=== PATIENT | male | born 1935 | race Caucasian/White ===

== ENCOUNTER 2020-11-07 15:09 | Outpatient (CLI) | payer MEDICARE, OTHER, SELFPAY ==
--- NOTE | ~2020-11-07 | XR_ITS ---
EXAMINATION: XR hip LT min 2V DATE: 11/07/2020 15:31 INDICATION: Left hip pain. TECHNIQUE: 3 views of left hip were obtained. COMPARISON: None. FINDINGS: Bone alignment is normal. No fracture. There is mild left hip osteoarthritis. There is mode rate lumbar spondylosis. IMPRESSION: 1. Mild left hip osteoarthritis. Reviewed, dictated and finalized at location B.
== END 2020-11-07 15:10 | disposition home or self-care (01) ==
LOC: ANHIMG 15:15
PROVIDERS: PCP Family Medicine; Visit Provider Family Medicine
DX: M16.12 Unilateral primary osteoarthritis, left hip (principal)
CPT/HCPCS: 73502

== ENCOUNTER 2021-04-10 09:36 | Outpatient (CLI) | payer MEDICARE, OTHER, SELFPAY ==
--- NOTE | ~2021-04-10 | CT_ITS ---
EXAMINATION: CT abdomen pelvis w con DATE: 04/10/2021 10:16 INDICATION: Prostate cancer. TECHNIQUE: Computed tomography (CT) of the abdomen and pelvis was performed with 100 mL Omnipaque 350 intravenous contrast. Automated exposure control and iterative reconstruction technique were employe d. The dose-length product was 531.75 mGy-cm. COMPARISON: CT abdomen and pelvis 02/25/2016, 12/13/12, 01/14/12 FINDINGS: The visualized portions of the lung bases demonstrate mild atelectasis and mild chronic mando g disease. No pleural effusion. The heart size is normal. There are coronary artery calcifications. T here are calcifications of the aortic valve. No pericardial effusion. There is a 6.9 cm cyst in the l iver. There are changes of cholecystectomy. There are diverticula in the second portion of the duoden um. The spleen, pancreas, and left adrenal gland are normal. 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 There is cortical thinning of right kidney. There is a 10 mm cyst in left kidney. There is a 4.5 cm fusiform aneurysm of infrarenal aorta. The prostate is mild ly enlarged. The bladder is decompressed. There is diverticulosis of the colon without evidence of di verticulitis. The appendix is normal. There are chronic areas of wall thickening in the ileum includi ng a long segment of the terminal ileum. There are no pathologically enlarged lymph nodes. There is n o free intraperitoneal fluid. There is a chronic 15 mm sclerotic lesion in right femoral head inferio rly, likely benign. There is lumbar dextroscoliosis and severe spondylosis. IMPRESSION: 1. No evidence of metastatic disease. 2. Chronic ileitis, consistent with Crohn disease. 3. 4.5 cm fusiform infrarenal aortic aneurysm, increased from 3.7 cm on 02/25/2016. Reviewed, dictated and finalized at location A. IMPRESSION: 1. No evidence of metastatic disease. 2. Chronic ileitis, consistent with Crohn disease. 3. 4.5 cm fusiform infrarenal aortic aneurysm, increased from 3.7 cm on 02/25/20 16.
--- NOTE | ~2021-04-10 | NM_ITS ---
EXAMINATION: NM bone scan whole body DATE: 04/10/2021 15:42 INDICATION: Prostate cancer. TECHNIQUE: 23.8 mCi Tc-99m HDP was administered intravenously. Delayed whole-body scintigrams were o btained. COMPARISON: CT abdomen and pelvis 04/10/2021, bone scan 06/04/2017 FINDINGS: There is joint-centered increased activity in the first carpometacarpal joints and shoulder s without radiographic comparison, likely osteoarthritis. IMPRESSION: 1. No evidence of metastatic disease. Reviewed, dictated and finalized at location A.
[2021-04-10 10:10] LABS: Estimated Glomerular Filt Rate > 60
== END 2021-04-10 09:37 | disposition home or self-care (01) ==
LOC: ANHIMG 09:40
PROVIDERS: PCP Family Medicine; Visit Provider Urology
DX: C61 Malignant neoplasm of prostate (principal); I70.1 Atherosclerosis of renal artery
CPT/HCPCS: 74177; 78306; A9561; Q9967

== ENCOUNTER → 2021-06-10 10:29 | Outpatient (CLI) | payer MEDICARE, OTHER, SELFPAY ==
[2021-06-11 03:58] LABS: SARS-CoV-2 RNA PCR Positive
== END ==
PROVIDERS: PCP Family Medicine; Visit Provider Physician Assistant Medical
DX: U07.1 COVID-19 (principal)
CPT/HCPCS: C9803; U0003; U0005

== ENCOUNTER 2021-06-12 07:27 | Outpatient (RCR) | payer MEDICARE, OTHER, SELFPAY ==
[2021-06-12] MEDS: ACETAMINOPHEN 325 MG TABLET 650 MG PO (07:40)
[2021-06-12] MEDS: diphenhydrAMINE HCl CAP 25 MG CAPSULE PO (07:40)
[2021-06-12] MEDS: FAMOTIDINE 20 MG TABLET PO (07:40)
[2021-06-12 07:49] VITALS: BP 121/60; PULSE 65; TEMP 35.9; O2SAT 96
[2021-06-12 09:12] VITALS: BP 116/72
== END 2021-06-12 16:59 ==
LOC: AMCINF 07:27
PROVIDERS: PCP Family Medicine; Visit Provider Internal Medicine Hematology & Oncology
DX: U07.1 COVID-19 (principal); I10 Essential (primary) hypertension
CPT/HCPCS: A9270; M0245; Q0245

== ENCOUNTER 2021-08-26 08:34 | Outpatient (CLI) | payer MEDICARE, OTHER, SELFPAY ==
--- NOTE | ~2021-08-26 | XR_ITS ---
EXAMINATION: XR small bowel follow through DATE: 08/26/2021 13:16 INDICATION: Diarrhea, unspecified. TECHNIQUE: Oral contrast was administered, and a time course of radiographs of the abdomen was obtain ed. Fluoroscopy of the small bowel was performed. Fluoroscopy exposure time was 0.5 minutes. The tota l number of images was 19. COMPARISON: CT abdomen and pelvis 04/02/2021, 02/25/2016 FINDINGS: There is chronic fold thickening with multiple strictures involving the distal 40 cm of small bowel. There are no dilated loops of bowel. There are multiple diverticula in the proximal small bowel. Siddiqui sit time from the stomach to proximal colon was approximately 4 hours. Surgical clips in the right up per quadrant are likely from cholecystectomy. IMPRESSION: 1. Chronic terminal ileitis, consistent with Crohn disease. 2. Diverticulosis of the proximal small bowel. Reviewed, dictated and finalized at location A.
== END 2021-08-26 08:35 | disposition home or self-care (01) ==
LOC: ANHIMG 08:36
PROVIDERS: PCP Family Medicine; Visit Provider Nurse Practitioner Family
DX: R19.7 Diarrhea, unspecified (principal); K50.00 Crohn's disease of small intestine without complications; K57.10 Diverticulosis of small intestine without perforation or abscess without bleeding
CPT/HCPCS: 74250

== ENCOUNTER 2021-10-15 01:54 | Day surgery (SDC) | payer MEDICARE, OTHER, SELFPAY ==
[2021-10-01 14:34] VITALS: BMI 24.5
[2021-10-15 11:12] VITALS: BP 151/102; PULSE 99; RESP 18; TEMP 36.2; O2SAT 100
[2021-10-15] MEDS: LACTATED RINGERS 1,000 ML 150 ML IV CONT (11:16)
--- NOTE | 2021-10-15 11:21 | P.PNAN_ITS ---
Anes - Initial Pre Proc Eval Procedure: Operation Date: 10/15/21 12:30 Proposed Procedures p Colonoscopy - Sudheer Truong MD Date/Time: 10/15/21 11:21 Surgeon: Sudheer Truong MD Pre Op Diagnosis: chronic ileitis abnormal CAT scan Patient Data Age: 86 Gender: M Height: 1.73 m Weight: 68.7 kg Last Vital Signs Temp 36.2 C L 10/15/21 11:12 Pulse 99 10/15/21 11:12 Resp 18 10/15/21 11:12 BP 151/102 H 10/15/21 11:12 Pulse Ox 100 10/15/21 11:12 Allergies Allergy/AdvReac Type Severity Reaction Status Date / Time No Known Allergies Allergy Verified 10/15/21 11:08 Home Medications Medication Instructions Recorded Confirmed Type aspirin 81 mg tablet,delayed 81 mg PO DAILY 05/02/19 10/01/21 History release diltiazem HCl [Cartia XT] 240 mg PO DAILY 10/01/21 10/15/21 History fluorouracil See Rx Instructions .ROUTE 10/01/21 10/01/21 History .COMPLEX PRN metoprolol tartrate 25 mg PO BID 10/01/21 10/01/21 History Patient hx anesthesia problems: none Family hx anesthesia problems: none Results Review: All pre-operative results and documents have been reviewed as part of the pre-operative evaluation. [facility] Past Medical History Medical History (Updated 10/15/21 @ 11:27 by Kwame Wu DO) AAA (abdominal aortic aneurysm) without rupture Followed Dr Stephens Vascular surgeon 12-02 aorta 4.3 cm repeat next year Actinic keratosis Benign essential HTN CAD (coronary artery disease) History of basal cell carcinoma (BCC) History of SCC (squamous cell carcinoma) of skin Obstructive sleep apnea on CPAP Family History Family History Father Diabetes mellitus Social History Social History (Updated 06/03/21 @ 14:53 by Usah Jones CMA) Smoking status: Former smoker Tobacco type: cigarettes Second hand tobacco smoke exposure: No Alcohol intake: current Drinks per week: 10 Alcohol use details: Beer Substance use: never Substance use type: does not use Living arrangements: with family Gender identity (if verbalized by the patient): Male Spiritual care concerns: No Agree to blood products: Yes Anes - Eval Final PreProcedure Day of Procedure 10/15/21 11:21 Patient weight: normal Heart: regular rate and rhythm Lungs: clear to auscultation and normal air movement Airway: Mallampati scale class II Neurological: alert and oriented Last oral intake: >/= 8 hours ASA classification: III Emergent: no Anesthetic plan: proceed Anesthesia type and monitoring: general GIVS and standard monitoring Results Review: All pre-operative results and documents have been reviewed as part of the pre-operative evaluation. Informed Consent: The patient's anesthetic plan and its attendant risks and benefits were discussed with the patient/family/POA. Questions were solicited and answers provided to the satisfaction of the patient/family/POA.
--- NOTE | 2021-10-15 12:01 | PM.HPGS ---
History of Present Illness History of Present Illness Consent: Risks, benefits, and alternatives have been discussed and questions answered. Patient agrees to proceed with procedure. Chief complaint: chronic ileitis abnormal CAT scan Narrative: Randy Gee is a 86 year old male with intermittent diarrhea. Ct scan back in March 2021, showed chronic areas of wall thickening in the ileum including a long segment of the terminal ileum. He denies any hx of crohns disease(recs reviewed). He was hospitalized back in 2012, for SBO that was treated medically. Per records, there was possible narrowing fo the distal/terminal ileum possibly due to incomplete distention however stricturing is not excluded (recs reviewed). Last colonoscopy 10-20 years ago. Serology for celiac negative, normal esr and crp but elevated calprotectin in stool. Review of Systems Constitutional: Constitutional: Denies headache(s) and Denies weakness Eyes: Eyes: Denies blurry vision ENT: Reports Normal hearing present, Denies headache(s) and Denies neck pain Cardiovascular: Cardiovascular: Denies chest pain and Denies dyspnea Respiratory: Respiratory: Denies dyspnea Gastrointestinal: Gastrointestinal: Reports no additional gastrointestinal complaints Genitourinary: Genitourinary: Denies dysuria Musculoskeletal: Musculoskeletal: Denies neck pain Integumentary/Breasts: Skin/Breast: Denies dry skin Neurologic: Reports Normal hearing present, Denies headache(s) and Denies weakness Psychiatric: Psychiatric: Denies anxiety Endocrine: Endocrine: Denies change in body appearance Hematologic/Lymphatic: Hematologic/Lymphatic: Denies easy bleeding Allergic/Immunologic: Allergic/Immunologic: Denies urticaria PMF Past Medical History Medical History (Updated 10/15/21 @ 12:22 by Sudheer Truong MD) AAA (abdominal aortic aneurysm) without rupture Followed Dr Stephens Vascular surgeon 12-02 aorta 4.3 cm repeat next year Actinic keratosis Benign essential HTN CAD (coronary artery disease) Chronic diarrhea History of basal cell carcinoma (BCC) History of SCC (squamous cell carcinoma) of skin Ileitis Obstructive sleep apnea on CPAP Family History Family History Father Diabetes mellitus Social History Social History (Updated 06/03/21 @ 14:53 by Usha Jones CMA) Smoking status: Former smoker Tobacco type: cigarettes Second hand tobacco smoke exposure: No Alcohol intake: current Drinks per week: 10 Alcohol use details: Beer Substance use: never Substance use type: does not use Living arrangements: with family Gender identity (if verbalized by the patient): Male Spiritual care concerns: No Agree to blood products: Yes Meds Home Medications and Allergies Home Medications Medication Instructions Recorded Confirmed Type aspirin 81 mg tablet,delayed 81 mg PO DAILY 05/02/19 10/01/21 History release diltiazem HCl [Cartia XT] 240 mg PO DAILY 10/01/21 10/15/21 History fluorouracil See Rx Instructions .ROUTE 10/01/21 10/01/21 History .COMPLEX PRN metoprolol tartrate 25 mg PO BID 10/01/21 10/01/21 History Allergies Allergy/AdvReac Type Severity Reaction Status Date / Time No Known Allergies Allergy Verified 10/15/21 11:08 Vital Signs Vital Signs - 24 hr 10/15/21 11:12 Temperature 97.2 F L Pulse Rate 99 Respiratory Rate 18 Blood Pressure 151/102 H Pulse Oximetry 100 Exam Const: General: comfortable and no acute distress HENMT: General nose exam: Normal nares present Eyes: General: appearance normal, both eyes and all related structures Neck: Neck: no JVD Resp: Auscultation: clear to auscultation bilaterally Cardio: Rate: regular rate Rhythm: regular rhythm GI: Inspection: non-distended GI Palp: Yes Soft to palpation Skin: General skin exam: normal color Neuro: General: gait normal Speech: normal speech
[2021-10-15 12:22] VITALS: BP 87/55; PULSE 78; RESP 22; O2SAT 95
[2021-10-15 12:32] VITALS: BP 109/70; PULSE 68; RESP 25; O2SAT 97
[2021-10-15 12:42] VITALS: BP 138/77; PULSE 68; RESP 24; O2SAT 96
== END 2021-10-15 12:56 | disposition home or self-care (01) ==
PROVIDERS: PCP Family Medicine; Visit Provider Internal Medicine Gastroenterology
PROC: 0DJD8ZZ Inspection of Lower Intestinal Tract, Via Natural or Artificial Opening Endoscopic (ICD-10-PCS; CPT 45378; principal; 2021-10-15 12:30)
DX: K52.9 Noninfective gastroenteritis and colitis, unspecified (principal); K57.30 Diverticulosis of large intestine without perforation or abscess without bleeding; K64.8 Other hemorrhoids; I71.4 Abdominal aortic aneurysm, without rupture; I10 Essential (primary) hypertension; I25.10 Atherosclerotic heart disease of native coronary artery without angina pectoris; G47.33 Obstructive sleep apnea (adult) (pediatric); Z87.891 Personal history of nicotine dependence
CPT/HCPCS: 45380; 88305; J2704; J7120

== ENCOUNTER → 2021-11-17 13:43 | Outpatient (REF) | payer MEDICARE, OTHER, SELFPAY | LOC: ANHLAB 13:43 | PROVIDERS: PCP Family Medicine; Visit Provider Nurse Practitioner | DX: C44.42 Squamous cell carcinoma of skin of scalp and neck (principal) | CPT/HCPCS: 88305 ==

== ENCOUNTER 2022-03-16 12:29 | Outpatient (NON) | payer MEDICARE, OTHER, SELFPAY | END 2022-03-16 12:30 | disposition home or self-care (01) | LOC: ANHLAB 12:29 | PROVIDERS: PCP Emergency Medicine; Visit Provider Nurse Practitioner | DX: C44.42 Squamous cell carcinoma of skin of scalp and neck (principal) | CPT/HCPCS: 88305; 88331 ==

== ENCOUNTER 2022-05-13 12:22 | Outpatient (CLI) | payer MEDICARE, OTHER, SELFPAY ==
[2022-05-13 13:01] LABS: CRP 0.7 mg/dL (<1.0)
[2022-05-13 13:26] LABS: Erythrocyte Sedimentation Rate 18 mm/hr (0-20)
== END 2022-05-13 12:23 | disposition home or self-care (01) ==
LOC: ANHLAB 12:23
PROVIDERS: PCP Emergency Medicine; Visit Provider Nurse Practitioner Family
DX: K52.9 Noninfective gastroenteritis and colitis, unspecified (principal)
CPT/HCPCS: 36415; 85652; 86140

== ENCOUNTER 2022-05-14 13:55 | Outpatient (CLI) | payer MEDICARE, OTHER, SELFPAY ==
[2022-05-23 20:03] LABS: Calprotectin, Stool 1820 mcg/g
== END 2022-05-14 13:56 | disposition home or self-care (01) ==
LOC: ANHLAB 13:56
PROVIDERS: PCP Emergency Medicine; Visit Provider Nurse Practitioner Family
DX: K52.9 Noninfective gastroenteritis and colitis, unspecified (principal)
CPT/HCPCS: 83993; 93005

== ENCOUNTER 2022-05-14 14:45 | Outpatient (CLI) | payer MEDICARE, OTHER, SELFPAY ==
--- NOTE | 2022-05-14 14:57 | ECG_ITS ---
Measurements Intervals [place] Rate: 74 P: 14 NM: 164 QRS: 70 QRSD: 130 T: 10 QT: 378 QTc: 420 Interpretive Statements SINUS RHYTHM RIGHT BUNDLE BRANCH BLOCK [120+ ms QRS DURATION, UPRIGHT V1, 40+ ms S IN I/aVL/V4/V5/V6] COMPARED TO ECG 08/27/2018 07:59:06 RIGHT BUNDLE-BRANCH BLOCK NOW PRESENT, PREVIOUSLY WAS INCOMPLETE RIGHT BUNDLE BRANCH BLOCK Electronically Signed On 05-14-2022 16:07:32 MAT LINKER by Elenita Escamilla M.D.
== END 2022-05-14 14:46 | disposition home or self-care (01) ==
PROVIDERS: PCP Emergency Medicine; Visit Provider Emergency Medicine
DX: R07.89 Other chest pain (principal); I45.10 Unspecified right bundle-branch block
CPT/HCPCS: 93005

== ENCOUNTER 2022-09-22 14:45 | Outpatient (RCR) | payer MEDICARE, OTHER, SELFPAY ==
--- NOTE | 2022-08-13 16:19 | PTOPEVAL1 ---
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 He was diagnosed with Guillon Douglas and after doing IVIG went to a rehab facility down there. Has come back up here and is still having numbness along with swelling in his ankles. Patient also is using a walker which he was not doing prior to his illness. 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 He has good endurance, but decreased balance requiring a wheeled walker and weakness more noticeable in his ankles and hips. Physical therapy will work on decreasing deficits with ultimate goal being to not need an assitive device for walking. Plan of Care Interventions Electrical Stimulation,Gait Training,Hot Pack/Cold Pack,Manual Therapy,Neuro Re-education,Patient/ Caregiver Education,Therapeutic Activities, Therapeutic Exercise,Ultrasound Other Interventions taping PT Services Indicated Yes Treatment Frequency and 2x/wk for 4 weeks Duration These treatments will address the objective and functional deficits as defined above. The patient will be advanced safely and appropriately in order for the patient to progress towards his/her prior level of function. Additional exercises will be introduced and as well as a comprehensive home exercise program upon discharge, if needed, ?to ensure carryover of functional gains achieved in the clinic. This treatment plan has been reviewed and agreement upon by the patient.
--- NOTE | 2022-09-10 16:08 | PTOPREEVAL ---
Assessment and note entered by Sagar Lopez, PT Evaluation Information Assessment Status Re-evaluation Diagnosis weakness and balance issues after Guillon Compton syndrom Onset Jun 24 2022 Subjective Information Patient and report that he has not used his walker since Wednesday and he was able to cut the grass on his yard tractor and go shopping by himself. Still needs the straight cane and has trouble getting up for low surfaces. Reported Pain Level Pain Score 0: Self Report Assessment PT Clinical Summary Randy is an 87 year old coming into the clinic with weakness and balance issues following Guillon Compton Syndrome. He was evaluated on 08/13/22 and has attended 9 sessions. He has progressed from a walker to a cane and reports being much more mobile. Physical therapy believe the patient should be able to still progress from cane to no assistive device. Would like to continue to work with patient Plan of Care Interventions Electrical Stimulation,Gait Training,Hot Pack/Cold Pack,Manual Therapy,Neuro Re-education,Patient/ Caregiver Education,Therapeutic Activities, Therapeutic Exercise,Ultrasound Other Interventions taping PT Services Indicated Yes Treatment Frequency and 1-2x/wk for 4 weeks Duration These treatments will address the objective and functional deficits as defined above. The patient will be advanced safely and appropriately in order for the patient to progress towards his/her prior level of function. Additional exercises will be introduced and as well as a comprehensive home exercise program upon discharge, if needed, ?to ensure carryover of functional gains achieved in the clinic. This treatment plan has been reviewed and agreement upon by the patient.
--- NOTE | 2022-09-24 15:24 | PCPTNOTE ---
Pt cancelled today's and all future appointments due to nerve conduction tests and other tests secondary to cancer treatments Pt is going through. He is requesting to go on hold for the next two weeks. Physical therapist informed.
--- NOTE | 2022-11-12 12:30 | PCPTNOTE ---
Admitting Provider: Attending Provider: Mark Morales MD Patient:Randy Gee Date of :1935 Patient has not returned for any further treatments since 09/22/2022, therefore he will be discharged at this time. Patient?s initial visit was on 08/13/2022 11:00 and he had a total of ___11 visits. The goals have been partially met. Thank you for referring this patient to [facility]. Please review, sign, date and return this discharge summary ARMOND. I have been updated about the patient's current status and I agree with discharge from the above service at this time. Referring Physician Date
== END 2022-11-11 14:57 | disposition home or self-care (01) ==
LOC: ANHPT 14:45
PROVIDERS: PCP Emergency Medicine; Visit Provider Emergency Medicine
DX: G61.0 Guillain-Barre syndrome (principal)
CPT/HCPCS: 97110; 97112; 97116; 97161; 97530

== ENCOUNTER 2022-10-09 09:31 | Outpatient (CLI) | payer MEDICARE, OTHER, SELFPAY ==
--- NOTE | 2022-10-09 11:00 | NEURO_ITS ---
Impression: Patient has a history of Guillain [place] Syndrome; presenting with numbness in all 4 extremities. # Demyelinating changes noted in bilateral upper extremities with secondary axonal changes. # Absent lower extremities sensorimotor responses indicating severe axonal changes. # Chronic neurogenic changes noted in the right 1st dorsal interosseus, right abductor pollicis brevis, right gastrocnemius, left flexor digitorum longs, and left extensor digitorum brevis. # Evidence of active denervation noted in the right 1st dorsal interosseus and left extensor digitorum brevis. 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 # Clinical correlation recommended. Nerve Conduction Studies Anti Sensory Summary Table Stim Site NR Peak (ms) P-T Amp (?V) Site1 Site2 Delta-P (ms) Dist (cm) Tor (m/s) Left Median Anti Sensory (2-3nd Digit) Wrist 7.8 8.7 Wrist 2-3nd Digit 7.8 14.0 18 Wrist 7.5 14.9 Wrist 2-3nd Digit 7.8 14.0 18 Right Median Anti Sensory (2-3nd Digit) Wrist 6.8 4.4 Wrist 2-3nd Digit 6.8 14.0 21 Wrist 6.5 15.7 Wrist 2-3nd Digit 6.8 14.0 21 Left Radial Anti Sensory (Base 1st Digit) Wrist 2.6 26.0 Wrist Base 1st Digit 2.6 0.0 Right Radial Anti Sensory (Base 1st Digit) Wrist 3.0 14.2 Wrist Base 1st Digit 3.0 0.0 Left Sup Fibular Anti Sensory (Ant Lat Mall) NO RESPONSE 14 cm NR 14 cm Ant Lat Mall 16.0 Right Sup Fibular Anti Sensory (Ant Lat Mall) NO RESPONSE 14 cm NR 14 cm Ant Lat Mall 16.0 Left Sural Anti Sensory (Lat Mall) NO RESPONSE Calf NR Calf Lat Mall 16.0 Right Sural Anti Sensory (Lat Mall) NO RESPONSE Calf NR Calf Lat Mall 16.0 Left Ulnar Anti Sensory (5th Digit) Wrist 3.4 3.5 Wrist 5th Digit 3.4 14.0 41 Right Ulnar Anti Sensory (5th Digit) Wrist 4.6 18.2 Wrist 5th Digit 4.6 14.0 30 Motor Summary Table Stim Site NR Onset (ms) O-P Amp (mV) Site1 Site2 Delta-0 (ms) Dist (cm) Tor (m/s) Left Median Motor (Abd Poll Brev) Wrist 7.4 0.9 Elbow Wrist 4.6 23.0 50 Elbow 12.0 1.1 Right Median Motor (Abd Poll Brev) Wrist 5.4 0.6 Elbow Wrist 6.0 23.0 38 Elbow 11.4 0.2 Left Peroneal Motor (Vastus Med) NO RESPONSE Ankle NR Popit Ankle 0.0 Popit NR B Fib NR Right Peroneal Motor (Vastus Med) NO RESPONSE Ankle NR Popit Ankle 0.0 Popit NR B Fib Ankle 0.0 B Fib NR Left Tibial Motor (Abd Shukla Brev) NO RESPONSE Ankle NR Knee Ankle 0.0 Knee NR Right Tibial Motor (Abd Shukla Brev) NO RESPONSE Ankle NR Knee Ankle 0.0 Knee NR Left Ulnar Motor (Abd Dig Minimi) Wrist 3.8 1.5 A Elbow Wrist 6.4 30.0 47 A Elbow 10.2 0.9 B Elbow Wrist 6.5 20.0 31 B Elbow 10.3 0.6 Right Ulnar Motor (Abd Dig Minimi) Wrist 3.3 2.1 A Elbow Wrist 11.6 30.0 26 A Elbow 14.9 1.0 B Elbow Wrist 6.2 20.0 32 B Elbow 9.5 1.2 F Wave Studies NR F-Lat (ms) L-R F-Lat (ms) Left Median (Mrkrs) (Abd Poll Brev) NO RESPONSE NR Right Median (Mrkrs) (Abd Poll Brev) 26.08 Left Peroneal (Mrkrs) (EDB) NO RESPONSE NR Right Peroneal (Mrkrs) (EDB) NO RESPONSE NR Left Tibial (Mrkrs) (Ab
== END 2022-10-09 09:32 | disposition home or self-care (01) ==
LOC: ANHNEURO 09:33
PROVIDERS: PCP Emergency Medicine; Visit Provider Emergency Medicine
DX: G61.0 Guillain-Barre syndrome (principal)
CPT/HCPCS: 95886; 95913

== ENCOUNTER 2022-10-20 12:07 | Outpatient (NON) | payer MEDICARE, OTHER, SELFPAY | END 2022-10-20 12:08 | disposition home or self-care (01) | PROVIDERS: PCP Emergency Medicine; Visit Provider Nurse Practitioner | DX: L85.8 Other specified epidermal thickening (principal) | CPT/HCPCS: 88305 ==

== ENCOUNTER 2022-11-23 09:00 | Outpatient (NON) | payer MEDICARE, OTHER, SELFPAY | END 2022-11-23 09:01 | disposition home or self-care (01) | LOC: ANHLAB 11-25 15:43 | PROVIDERS: PCP Emergency Medicine; Visit Provider Nurse Practitioner | DX: C44.92 Squamous cell carcinoma of skin, unspecified (principal) | CPT/HCPCS: 88305 ==

== ENCOUNTER 2023-03-02 08:00 | Outpatient (NON) | payer MEDICARE, OTHER, SELFPAY | END 2023-03-02 08:01 | disposition home or self-care (01) | LOC: ANHLAB 03-05 13:05 | PROVIDERS: Visit Provider Nurse Practitioner | DX: C44.42 Squamous cell carcinoma of skin of scalp and neck (principal) | CPT/HCPCS: 88305 ==

== ENCOUNTER 2023-03-22 12:50 | Outpatient (NON) | payer MEDICARE, OTHER, SELFPAY | END 2023-03-22 12:51 | disposition home or self-care (01) | LOC: ANHLAB 12:50 | PROVIDERS: Visit Provider Nurse Practitioner | DX: C44.42 Squamous cell carcinoma of skin of scalp and neck (principal) | CPT/HCPCS: 88305; 88331 ==

== ENCOUNTER 2023-06-10 14:41 | Outpatient (NON) | payer MEDICARE, OTHER, SELFPAY | END 2023-06-10 14:42 | disposition home or self-care (01) | LOC: ANHLAB 14:47 | PROVIDERS: Visit Provider Nurse Practitioner | DX: D48.5 Neoplasm of uncertain behavior of skin (principal); L82.1 Other seborrheic keratosis | CPT/HCPCS: 88305 ==

== ENCOUNTER 2023-09-13 12:35 | Outpatient (CLI) | payer MEDICARE, SELFPAY ==
--- NOTE | 2023-09-13 12:52 | ECHO_ITS ---
Patient Info Name: Randy Gee Age: 88 years : 1935 Gender: Male Ht: 68 in Wt: 148 lbs BSA: 1.80 m2 HR: 62 bpm BP: 129 / 78 mmHg Technical Quality: Fair Exam Date: 09/13/2023 1:07 PM Exam Location: Echo Lab Patient Status: Outpatient Admit Date: 09/13/2023 Staff Ordering Physician: Mark Morales MD Electrical Software Engineer: Flash Orr RDCS Attending Provider: Mark Morales MD Referring Physician: Andrew RAMOS; Exam Type: CA echo doppler color flow Study Info Indications R01.1 - Cardiac murmur, unspecified Complete two-dimensional, color flow and Doppler transthoracic echocardiogram is performed. Summary 1. Complete two-dimensional, color flow and Doppler transthoracic echocardiogram is performed. 2. Left ventricular chamber dimension is normal. 3. Left ventricular systolic function is normal, estimated at 60-65%. 4. The left ventricular diastolic function is grade I diastolic dysfunction. 5. E/e' 20 is elevated. 6. Left atrial chamber dimension is moderately enlarged. 7. There is moderate aortic valve sclerosis. 8. There is mild aortic valve stenosis with a peak velocity of 191 cm/s, mean gradient of 8 mmHg, and aortic valve area of 1.8 cm2. 9. The mitral valve has mildly calcified leaflets and moderately calcified annulus. 10. There is trace mitral valve regurgitation. 11. There is mild tricuspid valve regurgitation. 12. No pulmonary hypertension, estimated pulmonary arterial systolic pressure is 30 mmHg. Left Ventricle E/e' 20 is elevated. Left ventricular chamber dimension is normal. Left ventricular systolic function is normal, estimated at 60-65%. The left ventricular diastolic function is grade I diastolic dysfunction. Right Ventricle Right ventricular systolic function is normal and with normal TAPSE 2.0 cm. Right ventricular chamber dimension is normal. Left Atria Left atrial chamber dimension is moderately enlarged. Right Atria Right atrial chamber dimension is normal. Aortic Valve The aortic valve is trileaflet. There is moderate aortic valve sclerosis. There is mild aortic valve stenosis with a peak velocity of 191 cm/s, mean gradient of 8 mmHg, and aortic valve area of 1.8 cm2. There is no aortic valve regurgitation. Pulmonic Valve There is no pulmonic regurgitation. Mitral Valve The mitral valve has mildly calcified leaflets and moderately calcified annulus. There is no mitral valve stenosis. There is trace mitral valve regurgitation. Tricuspid Valve There is mild tricuspid valve regurgitation. No pulmonary hypertension, estimated pulmonary arterial systolic pressure is 30 mmHg. Pericardium/Pleural There is no pericardial effusion. Inferior Vena Cava Normal inferior vena cava with >50% collapse upon inspiration consistent with normal right atrial pressure, 5 mmHg. Aorta The aortic root size at the sinus of Valsalva is normal. Left Ventricular Outflow Tract Name Value Normal LVOT 2D LVOT Diameter 2.1 cm LVOT Doppler LVOT Peak Gradient 3 mmHg LVOT Mean Gradient 2 mmHg LVOT VTI 21 cm LVOT VTI/AV VTI Ratio 0.5 LVOT Stroke Volume
== END 2023-09-13 12:36 | disposition home or self-care (01) ==
PROVIDERS: PCP Emergency Medicine; Visit Provider Emergency Medicine
DX: R01.1 Cardiac murmur, unspecified (principal); G47.33 Obstructive sleep apnea (adult) (pediatric); I36.1 Nonrheumatic tricuspid (valve) insufficiency
CPT/HCPCS: 93306

== ENCOUNTER 2023-11-11 13:43 | Outpatient (CLI) | payer MEDICARE, SELFPAY ==
--- NOTE | ~2023-11-11 | XR_ITS ---
EXAMINATION: XR ribs BI 3V w CXR 2V Exam Date/Time: 11/11/2023 13:46 CDT HISTORY: R07.9 - Chest pain, unspecified Comparison: 08/26/2018. RESULT: Lines, tubes, and devices: Cholecystectomy clips. Lungs and pleura: Granulomatous calcification, left basilar scar, otherwise clear. Cardiothymic silhouette: Stable. Other: No acute osseous or upper abdominal finding. Osteopenia. Lumbar scoliosis and degenerative di sc disease. IMPRESSION: No acute cardiopulmonary process. No acute osseous finding in the ribs. Reviewed, dictated and finalized at location K.
== END 2023-11-11 13:44 ==
PROVIDERS: PCP Emergency Medicine; Visit Provider Emergency Medicine
DX: R07.9 Chest pain, unspecified (principal)
CPT/HCPCS: 71046; 71110

== ENCOUNTER 2023-11-22 10:43 | Outpatient (CLI) | payer MEDICARE, SELFPAY ==
--- NOTE | ~2023-11-22 | CT_ITS ---
CT of the Abdomen and Pelvis: Indication: Abdominal aortic aneurysm Technique: 2.5 mm axial scans were obtained through the abdomen and pelvis following intravenous adm inistration of 100 cc of Omnipaque 350. Dose reduction technique was used on this scan by utilizing a utomated exposure control and iterative reconstruction technique. The dose-length product (DLP) was 7 96.36 mGy-cm. COMPARISON: 04/10/2021 Findings: Scans through the lung bases are unremarkable. Stable large hepatic cyst. Status post cholecystectomy. The spleen, pancreas, adrenals and kidneys ar e within normal limits. 5.0 cm infrarenal abdominal aortic aneurysm present, with extensive atheroscl erotic calcifications of the aorta and common iliac vessels.. No lymphadenopathy. There is mild wall thickening of several right-sided small bowel loops, suggestive of enteritis. No b owel obstruction. No abscess or free air. Large duodenal diverticulum present. Images through the pelvis were performed. Urinary bladder unremarkable. No pelvic mass. Trace free fl uid present in the pelvis. Impression: Infrarenal abdominal aortic aneurysm measures 5.0 cm in diameter, increased from prior exam. Findings compatible with infectious/inflammatory small bowel enteritis, as above. Large duodenal diverticulum. Reviewed, dictated and finalized at location M. Impression: Infrarenal abdominal aortic aneurysm measures 5.0 cm in diameter, increased fro m prior exam. Findings compatible with infectious/inflammatory small bowel enteritis, as abov e. Large duodenal diverticulum.
[2023-11-22 11:06] LABS: Estimated Glomerular Filt Rate > 60
== END 2023-11-22 10:44 ==
LOC: MICIMG 10:44
PROVIDERS: PCP Emergency Medicine
DX: I71.43 Infrarenal abdominal aortic aneurysm, without rupture (principal); K57.10 Diverticulosis of small intestine without perforation or abscess without bleeding
CPT/HCPCS: 74174; Q9967

== ENCOUNTER 2024-01-06 09:56 | Outpatient (CLI) | payer MEDICARE, SELFPAY ==
--- NOTE | 2024-01-06 11:45 | NEURO_ITS ---
Clinical note: History of [place] syndrome in the past. Patient continues to have weakness in lower limbs. Please refer to the office note for details. The results of the study a given below. Summary of findings 1.. Left and right peroneal motor distal latencies were mildly prolonged firs amplitudes mildly decreased on the left and normal on the right side. Conduction velocities were moderately decreased left more than right side. 2. Right median motor distal latency was moderately prolonged and amplitude was moderate decreased was conduction velocity were normal. Right ulnar motor distal latencies are moderately prolonged and amplitude is mildly decreased wears conduction velocity from below elbow to wrist was normal but there is focal slowing noted across the elbow at 35 m/sec. 3. Left and right tibial motor distal latencies are mildly prolonged and amplitudes are moderately decreased and conduction velocity mildly decreased. 4. Bilateral sural sensory were absent. Right median and ulnar digital sensory distal latencies are moderately prolonged but amplitudes were within normal limits. 5. Right H-reflex was absent 6. EMG examination performed and various muscles examined lower limbs and related paraspinal muscles. Mild denervation changes were seen in medial gastrocnemius on the right side and decreased recruitment were noted in the tibialis anterior and medial gastrocnemius bilaterally. No significant denervation changes are seen paraspinal muscles. 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 Angie Valenzuela MD, FAAN, FAANEM Neurology and electrodiagnostic Medicine Nerve Conduction Studies Motor Nerve Results Latency Amplitude Segment Distance CV Site (ms) Norm (mV) Norm (cm) (m/s) Norm Left Fibular (EDB) Motor Ankle 6.5 < 6.1 1.58 > 2.0 Bel Fib Head 17.4 - 1.16 - Bel Fib Head-Ankle 310 28 > 38 Pop Fossa 20.5 - 1.22 - Pop Fossa-Bel Fib Head 80 26 > 42 Right Fibular (EDB) Motor Ankle 5.7 < 6.1 2.8 > 2.0 Bel Fib Head 14.5 - 2.8 - Bel Fib Head-Ankle 295 34 > 38 Pop Fossa 16.2 - 3.0 - Pop Fossa-Bel Fib Head 80 47 > 42 Right Median (APB) Motor Wrist 5.3 < 4.2 3.4 > 5.0 Elbow 9.8 - 3.2 - Elbow-Wrist 220 49 > 50 Axilla 11.1 - 2.8 - Axilla-Elbow 70 54 - Left Tibial (AHB) Motor Ankle 6.5 < 6.1 3.2 > 4.4 Knee 19.7 - 3.2 - Knee-Ankle 440 33 > 39 Right Tibial (AHB) Motor Ankle 6.9 < 6.1 2.2 > 4.4 Knee 19.7 - 2.8 - Knee-Ankle 470 37 > 39 Right Ulnar (ADM) Motor Wrist 4.4 < 4.2 4.7 > 3.0 Bel Elbow 8.1 - 3.9 - Bel Elbow-Wrist 220 59 > 53 Abv Elbow 10.4 - 3.4 - Abv Elbow-Bel Elbow 80 35 > 52 Wrist 4.4 < 4.2 4.7 > 3.0 Sensory Nerve Results Latency (Peak) Amplitude (P-P) Segment Distance CV Comments Site (ms) Norm (?V) Norm (cm)l (m/s) Norm Right Median DigIII Sensory Wrist-Dig III 4.7 - 24 - Left Sural Sensory Calf-Lat Mall NR < 4.0 NR > 5 Calf-Lat Mall 120 NR > 35 NO RESPONSE Right Sural Sensory Calf-Lat Mall NR < 4.0 NR > 5 Calf-Lat Mall 140 NR > 35 NO RESPONSE Right Ulnar Sensory Wrist-Dig V 4.0 < 3.7 25 > 15 Wrist-Dig V 135 34 > 38 H-Reflex Results M-Lat H Lat H-M Lat Site (ms) (ms) Norm (ms) Right Tibial H-Reflex Pop Fossa No Response No Response - 33.0 Electromyography
== END 2024-01-06 09:57 | disposition home or self-care (01) ==
LOC: ANHNEURO 09:57
PROVIDERS: PCP Emergency Medicine; Visit Provider Psychiatry & Neurology Neurology
DX: E11.9 Type 2 diabetes mellitus without complications (principal); G62.9 Polyneuropathy, unspecified; R94.131 Abnormal electromyogram [EMG]
CPT/HCPCS: 95886; 95912

== ENCOUNTER 2024-11-22 10:46 | Outpatient (CLI) | payer MEDICARE, SELFPAY ==
--- NOTE | ~2024-11-22 | CT_ITS ---
CT of the Abdomen and Pelvis: Indication: Abdominal aortic aneurysm Technique: 2.5 mm axial scans were obtained through the abdomen and pelvis following intravenous adm inistration of 100 cc of Omnipaque 350. Dose reduction technique was used on this scan by utilizing a utomated exposure control and iterative reconstruction technique. The dose-length product (DLP) was 4 48.22 mGy-cm. COMPARISON: 11/22/2023 Findings: Scans through the lung bases are unremarkable. Gallbladder absent. Stable large caudate lobe simple hepatic cyst. The spleen, pancreas, adrenals and kidneys are within normal limits. Infrarenal abdominal aortic aneurysm measures 5 cm in transverse d imension. There is extensive atherosclerotic calcification of the abdominal aorta. No lymphadenopathy . There is mild diffuse large bowel wall thickening. There is additional wall thickening of the distal/ terminal ileum. No bowel obstruction. No abscess or free air. Stable large duodenal diverticulum. Images through the pelvis were performed. Urinary bladder unremarkable. No pelvic mass present. Very small fat-containing left inguinal hernia present. Impression: Extensive wall thickening of the entire colon and the distal/terminal ileum. Correlate for inflammato ry bowel disease such as ulcerative colitis with backwash ileitis, versus other infectious/inflammato ry enterocolitis. 5.0 cm infrarenal abdominal aortic aneurysm. Reviewed, dictated and finalized at [facility]. Impression: Extensive wall thickening of the entire colon and the distal/terminal ileum. Co rrelate for inflammatory bowel disease such as ulcerative colitis with backwash ileitis, versus other infectious/inflammatory enterocolitis. 5.0 cm infrarenal abdominal aortic aneurysm.
[2024-11-22 11:06] LABS: Estimated Glomerular Filt Rate > 60
== END 2024-11-22 10:47 | disposition home or self-care (01) ==
LOC: MICIMG 10:48
PROVIDERS: PCP Emergency Medicine
DX: I71.43 Infrarenal abdominal aortic aneurysm, without rupture (principal)
CPT/HCPCS: 74174; Q9967

== ENCOUNTER 2024-12-09 11:53 | Emergency (ER) | payer MEDICARE, SELFPAY ==
--- NOTE | ~2024-12-09 | XR_ITS ---
EXAMINATION: XR chest 2V DATE: 12/09/2024 12:32 INDICATION: Shortness of breath TECHNIQUE: frontal and lateral views of the chest were obtained. COMPARISON: Chest radiograph dated 11/11/2023 FINDINGS: Minimal linear discoid atelectasis at the lingula. Calcified right upper lobe nodule consistent with old granulomatous disease. No other airspace opacities, pulmonary edema, pleural effusion or pneumoth orax. Arch size is normal. Tortuous thoracic aorta. Cholecystectomy clips in right upper quadrant. IMPRESSION: 1. Minimal lingular atelectasis. No other acute cardiopulmonary disease. Reviewed, dictated and finalized at location A.
[2024-12-09 11:55] VITALS: BP 127/84; PULSE 109; RESP 23; O2SAT 98
--- NOTE | 2024-12-09 12:04 | ECG_ITS ---
Test Date: 2024-12-09 12:08:30 Measurements Intervals [place] Rate: 105 P: 0 AR: 0 QRS: 93 QRSD: 134 T: -17 QT: 349 QTc: 461 Interpretive Statements ATRIAL FIBRILLATION WITH RAPID VENTRICULAR RESPONSE RIGHT BUNDLE BRANCH BLOCK ABNORMAL ECG No previous ECG available for comparison Electronically Signed On 12-09-2024 12:25:42 CDT by Adan Shook D.O.
[2024-12-09 12:49] VITALS: BP 124/88; PULSE 89; RESP 20; O2SAT 96
[2024-12-09 12:56] LABS: Add Urine Microscopic? NO; Appearance Urine Clear (Clear); Bilirubin Urine Negative (Negative); Blood Urine Negative (Negative); Color Urine Yellow (Yellow); Glucose Urine UA Negative (Negative); Ketones Urine Negative (Negative); Leukocyte Esterase Ur Negative LEU/UL (Negative); Nitrate Urine Negative (Negative); Protein Urine Negative (Negative); Specific Grav Ur 1.005 (1.001-1.035); Urobilinogen Urine 0.2 mg/dL (<2.0)
[2024-12-09 12:57] LABS: Basophils Absolute Auto 0.1 K/mm3 (0.0-0.1); Basophils Percent Auto 0.7 % (0.2-1.2); Eosinophils Absolute Auto 0.1 K/mm3 (0-0.3); Eosinophils Percent Auto 0.5 % (0-4.4); Hematocrit 43.6 % (42.0-52.0); Hemoglobin 13.6 g/dL (14.0-18.0); Immature Granulocyte Absolute 0.05 K/mm3 (0.00-0.031); Immature Granulocyte Percent A 0.5 % (0-0.5); Lymphocytes Absolute Auto 1.39 K/mm3 (0.9-3.2); Lymphocytes Percent Auto 13.4 % (18.3-44.2); Mean Corpuscular HGB Conc 31.2 g/dl (32-36); Mean Corpuscular Volume 89.7 fl (80-100); Mean Platelet Volume 9.1 fl (7.4-10.4); Monocytes Absolute Auto 0.8 K/mm3 (0.1-0.6); Monocytes Percent Auto 7.8 % (2.6-8.5); Neutrophils Percent Auto 77.1 % (45.5-73.1); Platelet Count Result 255 k/mm3 (150-375); Red Blood Count 4.86 M/mm3 (4.6-6.20); Red Cell Distribution Width 13.8 % (11.5-14.5); White Blood Count 10.4 K/mm3 (4.5-10.0)
[2024-12-09 13:10] LABS: Alanine Aminotransferase 17 U/L (6-50); Albumin Level 3.8 g/dL (3.5-5.1); Alkaline Phosphatase 84 U/L (38-126); Anion Gap 9 mmol/L (4-12); Aspartate Amino Transferase 28 U/L (17-59); Blood Urea Nitrogen 17 mg/dL (9-20); Carbon Dioxide 28 mmol/L (22-30); Chloride 104 mmol/L (98-107); Estimated CRCL calculation 53 ml/min; Estimated Glomerular Filt Rate > 60; Glucose 137 mg/dL (65-110); Potassium 3.8 mmol/L (3.4-5.0); Sodium 141 mmol/L (137-145); Total Protein 7.2 g/dL (6.3-8.2)
[2024-12-09 13:13] LABS: Partial Thromboplastin Time 26.1 Seconds (22.3-36.8); Prothrombin Time 13.1 Seconds (11.1-14.7)
[2024-12-09 13:18] LABS: NT Pro B Type Natriuretic Pept 1330 pg/mL (19.9-100)
[2024-12-09 13:21] LABS: Troponin I 0.018 ng/mL (0.000-0.034)
--- NOTE | 2024-12-09 13:23 | ED_ITS ---
HPI - Arrhythmia/Palpitations General Chief Complaint: Arrhythmia/Palpitations Stated Complaint: TACHYCARDIA Time Seen by Provider: 12/09/24 11:55 Related Data Home Medications ?Medication ?Instructions ?Recorded ?Confirmed ?Last Taken ?Type aspirin 81 mg tablet,delayed 81 mg PO DAILY 05/02/19 12/05/24 10/14/21 History release (Adult Aspirin Regimen) fluorouracil 5 % topical cream See Rx Instructions .Route 10/01/21 12/05/24 10/14/21 History .COMPLEX PRN lesions nifedipine 10 mg capsule 10 mg PO Q12H 09/17/23 12/05/24 Unknown History vitamin B complex 1 tablet PO DAILY 10/26/23 12/05/24 Unknown History Allergies Allergy/AdvReac Type Severity Reaction Status Date / Time gabapentin Allergy Severe Anaphylaxis Verified 12/09/24 12:09 [facility] Past Medical History Medical History Peripheral neuropathy Crohn's disease involving terminal ileum Chronic diarrhea Ileitis Obstructive sleep apnea on CPAP AAA (abdominal aortic aneurysm) without rupture Followed Dr Stephens Vascular surgeon 12-02 aorta 4.3 cm repeat next year Benign essential HTN CAD (coronary artery disease) Actinic keratosis History of SCC (squamous cell carcinoma) of skin History of basal cell carcinoma (BCC) Family History Family History Father Diabetes mellitus Social History Social History Smoking packs per day: 3 Smoking cigarettes per day: 60.0 Years smoked: 25 Smoking pack-years: 75.00 Smoking status: Former smoker Tobacco type: cigarettes Second hand tobacco smoke exposure: No Alcohol intake: current Drinks per week: 10 Alcohol use details: Beer Substance use: never Substance use type: does not use Lack of Transportation: No Lack of Food: Never True Current Housing: I Have Housing Concerned About Future Housing: No Difficulty Paying Gas/Electric Bills: No Currently Unemployed: No Education: Associate Degree Difficulty w/ Childcare or Family Care: No Living arrangements: with family Occupation/Education: retired Gender identity (if verbalized by the patient): Male Spiritual care concerns: No Agree to blood products: Yes Course Course Emergency Course: Patient was in atrial fibrillation and then abruptly converted to a sinus rhythm before receiving any medication. He has remained in a sinus rhythm throughout his ER stay. No symptoms. Discussed lab and imaging results. I have also discussed this with the mid level project manager on-call Dr. An. No modification recommended for his rate control medications which include metoprolol 12.5 mg in the morning and metoprolol 25 mg in the evening. He also takes nifedipine 10 mg in the morning. We will start patient on Eliquis. He has follow-up in [address] Mota. Vital Signs Vital signs: Vital Signs Pulse Rate 109 H 12/09/24 11:55 Respiratory Rate 23 H 12/09/24 11:55 Blood Pressure 127/84 12/09/24 11:55 Pulse Oximetry 98 12/09/24 11:55 Oxygen Delivery Room Air 12/09/24 11:55 Pulse Rate 89 12/09/24 12:49 Respiratory Rate 20 12/09/24 12:49 Blood Pressure 124/88 12/09/24 12:49 Pulse Oximetry 96 12/09/24 12:49 Oxygen Delivery Room Air 12/09/24 11:55 MDM - Arrhythmia/Palpitations MDM Narrative Medical decision making narrative: TRACEE?DS?-VASc Score for Atrial Fibrillation Stroke Risk from [employer] on 12/09/2024 All calculations should be rechecked by clinician prior to use RESULT SUMMARY: 3 points Stroke risk was 3.2% per year in >90,000 patients (the [place] Atrial Fibrillation Cohort Study) and 4.6% risk of stroke/TIA/systemic embolism. INPUTS: Age ?> 2 = >=5 Sex ?> 0 = Male CHF history ?> 0 = No Hypertension history ?> 1 = Yes Stroke/TIA/thromboembolism history ?> 0 = No Vascular disease history (prior [place], peripheral artery disease, or aortic plaque) ?> 0 = No Diabetes history ?> 0 = No Lab Data 12/09/24 12:48 12/09/24 12:48 Labs: Lab Results 12/09/24 Range/Units 12:48 WBC 10.4 H (4.5-10.0) K/mm3 RBC 4.86 (4.6-6.20) M/mm3 Hgb 13.6 L (14.0-18.0) g/dL Hct 43.6 (42.0-52.0) % MCV 89.7 (80-100) fl MCH 28.0 (26-34) pg MCHC 31.2 L (32-36) g/dl RDW 13.8 (11.5-14.5) % Plt Count 255 (150-375) k/mm3 MPV 9.1 (7.4-10.4) fl Immature Gran % (Auto) 0.5 (0-0.5) % Neut % (Auto) 77.1 H (45.5-73.1) % Lymph % (Auto) 13.4 L (18.3-44.2) % [place] % (Auto) 7.8 (2.6-8.5) % Eos % (Auto) 0.5 (0-4.4) % Baso % (Auto) 0.7 (0.2-1.2) % Lymph # (Auto) 1.39 (0.9-3.2) K/mm3 [place] # (Auto) 0.8 H (0.1-0.6) K/mm3 Eos # (Auto) 0.1 (0-0.3) K/mm3 Baso # (Auto) 0.1 (0.0-0.1) K/mm3 Abs Immat Gran (auto) 0.05 H (0.00-0.031) K/mm3 Absolute Neuts (auto) 8.0 H (1.3-6.7) K/mm3 Absolute Nucleated RBC 0.000 (0.0-0.012) K/mm3 Nucleated RBC % 0.0 (0.0-0.2) % PT 13.1 (11.1-14.7) Seconds INR 1.0 APTT 26.1 (22.3-36.8) Seconds Sodium 141 (137-145) mmol/L Potassium 3.8 (3.4-5.0) mmol/L Chloride 104 (98-107) mmol/L Carbon Dioxide 28 (22-30) mmol/L Anion Gap 9 (4-12) mmol/L BUN 17 (9-20) mg/dL Creatinine 0.79 (0.7-1.3) mg/dL Estim Creat Clear Calc 53 ml/min Estimated GFR > 60 (59 - ) Glucose 137 H (65-110) mg/dL Calcium 9.0 (8.4-10.2) mg/dL Total Bilirubin 1.0 (0.2-1.3) mg/dL AST 28 (17-59) U/L ALT 17 (6-50) U/L Alkaline Phosphatase 84 (38-126) U/L Troponin I 0.018 (0.000-0.034) ng/mL NT-Pro-B Natriuret Pep 1330 H (19.9-100) pg/mL Total Protein 7.2 (6.3-8.2) g/dL Albumin 3.8 (3.5-5.1) g/dL Urine Color Yellow (Yellow) Urine Appearance Clear (Clear) Urine pH 7.0 (5.0-9.0) Ur Specific [place] 1.005 (1.001-1.035) Urine Protein Negative (Negative) mg/dL Urine Glucose (UA) Negative (Negative) mg/dL Urine Ketones Negative (Negative) mg/dL Ur Blood (Man) Negative (Negative) Urine Nitrate Negative (Negative) Urine Bilirubin Negative (Negative) Urine Urobilinogen 0.2 (<2.0) mg/dL Leukocyte Esterase Rfl Negative (Negative) JAC/UL Imaging Data Radiologist's impression: ITS Impressions Chest X-Ray 12/09/24 12:43 IMPRESSION: 1. Minimal lingular atelectasis. No other acute cardiopulmonary disease. ECG Data EKG #1: ECG completion date: 12/09/24 ECG completion time: 12:08 EKG Interpretation: tachycardia (105), atrial fibrillation, non-specific ST changes, widened QRS and RBBB EKG #2: ECG completion date: 12/09/24 ECG completion time: 13:56 EKG Interpretation: normal rate (80), sinus rhythm, non-specific ST changes, widened QRS and RBBB Discharge Plan Discharge Clinical Impression: Paroxysmal A-fib Patient Disposition: Home Condition: Stable Instructions: Antibiotic Form, A-fib (Atrial Fibrillation) (ED) Additional Instructions: Please return to the emergency department if you develop severe and persistent chest pain, difficulty breathing, dizziness, leg swelling or if you are coughing up blood as these can be signs of a medical emergency. Please call your doctor for a follow up appointment to determine the need for further testing. Additionally, return the ER if you have dark black stools, you fall and strike your head, or you are vomiting blood. Patient Language: Yakut Prescriptions: New Eliquis 5 mg tablet 5 mg PO BID Qty: 30 0RF No Action nifedipine 10 mg capsule 10 mg PO Q12H pregabalin 50 mg capsule 50 mg PO BID Qty: 90 2RF Rx Instructions: May increase up to 3 times a day if necessary mecobalamin (vitamin B12) 10,000 mcg recon soln 1,000 mcg IM . monthly Qty: 1 12RF sertraline 25 mg tablet 25 mg PO DAILY Qty: 30 1RF aspirin [Adult Aspirin Regimen] 81 mg tablet,delayed release (DR/EC) 81 mg PO DAILY fluorouracil 5 % cream See Rx Instructions .ROUTE .COMPLEX PRN (Reason: lesions) Rx Instructions: APPLY SUFFICIENT AMOUNT TOPICALLY TO COVER ALL LESIONS TWICE DAILY FOR 4 WEEKS cyanocobalamin (vitamin B-12) 1,000 mcg/mL solution 1,000 mcg IM WEEKLY Qty: 10 0RF Rx Instructions: 1 ml weekly for 3 weeks, then monthly thereafter thiamine HCl (vitamin B1) 50 mg tablet 50 mg PO DAILY Qty: 90 3RF vitamin B complex Tablet 1 tablet PO DAILY metoprolol tartrate 25 mg tablet See Rx Instructions .ROUTE .COMPLEX Qty: 180 0RF Dose Instruction: TAKE 1 TABLET BY MOUTH TWICE DAILY Rx Instructions: TAKE 1 TABLET BY MOUTH TWICE DAILY oxycodone-acetaminophen 5-325 mg tablet 1 tablet PO BID PRN (Reason: pain) Qty: 120 0RF Follow-up/Referrals: Alex Mota MD [Physician] - 2 Days Vero Prado FNP-C [Primary Care Provider] -
--- NOTE | 2024-12-09 13:33 | ECG_ITS ---
Test Date: 2024-12-09 13:56:27 Measurements Intervals [place] Rate: 80 P: 26 NC: 217 QRS: 74 QRSD: 133 T: 0 QT: 404 QTc: 466 Interpretive Statements SINUS RHYTHM WITH FIRST DEGREE AV BLOCK RIGHT BUNDLE BRANCH BLOCK ABNORMAL ECG Compared to ECG 12/09/2024 12:08:30 Atrial fibrillation no longer present Electronically Signed On 12-09-2024 15:11:41 CDT by Adan Shook D.O.
[2024-12-09] MEDS: APIXABAN 5 MG TABLET PO (15:14)
[2024-12-09 15:24] VITALS: BP 146/82; PULSE 78; RESP 18; O2SAT 99
== END 2024-12-09 15:26 | disposition home or self-care (01) ==
PROVIDERS: Emergency Provider Emergency Medicine; PCP Nurse Practitioner Family
DX: I48.0 Paroxysmal atrial fibrillation (principal); R06.02 Shortness of breath; I25.10 Atherosclerotic heart disease of native coronary artery without angina pectoris; I10 Essential (primary) hypertension; K50.00 Crohn's disease of small intestine without complications; G62.9 Polyneuropathy, unspecified; G47.33 Obstructive sleep apnea (adult) (pediatric); Z85.828 Personal history of other malignant neoplasm of skin; Z87.891 Personal history of nicotine dependence; Z79.82 Long term (current) use of aspirin; Z79.899 Other long term (current) drug therapy; I45.10 Unspecified right bundle-branch block; I44.0 Atrioventricular block, first degree
CPT/HCPCS: 36415; 71046; 80053; 81003; 83880; 84484; 85025; 85610; 85730; 93005; 99284; A9270

== ENCOUNTER 2025-02-07 19:20 | Inpatient (IN) | payer MEDICARE, SELFPAY ==
--- NOTE | ~2025-02-07 | XR_ITS ---
EXAMINATION: XR chest 1V portable DATE: 02/07/2025 20:04 INDICATION: Chest pain TECHNIQUE: frontal view of the chest was obtained. COMPARISON: Chest radiograph dated 12/09/2024 FINDINGS: Calcified nodules in the right upper lung zone consistent with old granulomatous disease. Skinfolds project over the lateral aspect of both lungs. No pulmonary edema, pleural effusion or pneumothorax. Thin curvilinear opacities at the left costophrenic angle corresponding to the margins of a region of focal emphysema dated 11/22/24. Heart size is normal. Tortuous thoracic aorta. IMPRESSION: 1. Emphysema. No acute cardiopulmonary disease. Reviewed, dictated and finalized at location A.
[2025-02-07 19:17] VITALS: BP 139/88; PULSE 88; RESP 22; TEMP 36.7; O2SAT 96
--- NOTE | 2025-02-07 19:24 | ECG_ITS ---
Test Date: 2025-02-07 19:26:46 Measurements Intervals [place] Rate: 86 P: 10 [place]: 189 QRS: 90 QRSD: 133 T: 27 QT: 397 QTc: 476 Interpretive Statements SINUS RHYTHM RIGHT BUNDLE BRANCH BLOCK BASELINE ARTIFACT- II, III, AVR, AVL, AVF, V1-V2 ABNORMAL ECG Compared to ECG 12/09/2024 13:56:27 FIRST DEGREE AV BLOCK NO LONGER PRESENT Electronically Signed On 02-07-2025 21:26:21 CDT by Adan Shook D.O.
[2025-02-07 19:46] LABS: Hematocrit 41.2 % (42.0-52.0); Hemoglobin 13.1 g/dL (14.0-18.0); Immature Granulocyte Percent A 0.2 % (0-0.5); Lymphocytes Absolute Auto 2.72 K/mm3 (0.9-3.2); Mean Corpuscular HGB Conc 31.8 g/dl (32-36); Mean Corpuscular Hemoglobin 28.3 pg (26-34); Mean Corpuscular Volume 89.0 fl (80-100); Nucleated Red Blood Cells Absolute Auto 0.000 K/mm3 (0.0-0.012); Nucleated Red Blood Cells Perc 0.0 % (0.0-0.2); Platelet Count Result 305 k/mm3 (150-375); Red Blood Count 4.63 M/mm3 (4.6-6.20); White Blood Count 9.7 K/mm3 (4.5-10.0)
[2025-02-07 19:57] LABS: Alanine Aminotransferase 11 U/L (6-50); Albumin Level 3.8 g/dL (3.5-5.1); Alkaline Phosphatase 89 U/L (38-126); Anion Gap 7 mmol/L (4-12); Aspartate Amino Transferase 24 U/L (17-59); Bilirubin,Total 0.8 mg/dL (0.2-1.3); Blood Urea Nitrogen 20 mg/dL (9-20); Calcium 8.7 mg/dL (8.4-10.2); Carbon Dioxide 29 mmol/L (22-30); Chloride 101 mmol/L (98-107); Estimated Glomerular Filt Rate > 60; Glucose 193 mg/dL (65-110); Lipase 38 U/L (23-300); Potassium 3.9 mmol/L (3.4-5.0); Sodium 137 mmol/L (137-145); Total Protein 7.0 g/dL (6.3-8.2)
[2025-02-07 20:00] LABS: INR 1.1; Partial Thromboplastin Time 31.8 Seconds (22.3-36.8); Prothrombin Time 14.6 Seconds (11.1-14.7)
--- OUTSIDE RECORDS SUMMARY | 2025-02-07 20:04 | XMS_ITS | Clinical Summary ---
Author Organization [facility] [address] Address [address] [place] [address] Care Team Providers Care Change Control Coordinator Name Role Phone Jose Su MD Unavailable Fransisco Buchanan MD Unavailable [phone] Gemini Millan MD Primary Care Provider + Allergies Active Allergy Reactions Criticality Noted Date Comments Gabapentin Other (See comments) Low 10/02/2022 Blood pressure dropped, tongue went numb Medications cyanocobalamin (Vitamin B-12) 1,000 mcg/mL injection 10/26/2023 Active sotaloL (BETAPACE) 80 mg tablet Take 0.5 tablets (40 mg total) by mouth 2 (two) times a day 30 tablet 2 12/11/2024 5 Active Eliquis 5 mg tablet Take 1 tablet (5 mg total) by mouth 2 (two) times a day 60 tablet 11 12/19/2024 Active NIFEdipine (NIFEdipine CC) 30 mg 24 hr tablet Take 1 tablet (30 mg total) by mouth daily 90 tablet 2 01/09/2025 6 Active Active Problems Problem Noted Date Diagnosed Date Paroxysmal atrial fibrillation 01/09/2025 RBBB 09/26/2020 Aneurysm of infrarenal abdominal aorta 8 Assessment & Plan (12/04/2024 11:26 AM CDT): Continues to remain stable 5 cm abdominal aortic aneurysm. Follow up in 6 months for routine surveillance with abdominal pelvic CTA Assessment & Plan (12/25/2023 12:08 PM CDT): Stable 5 cm fusiform infrarenal abdominal aortic aneurysm both on CT and duplex. No indication for surgical intervention at this time follow up [address] scan. Assessment & Plan (06/02/2023 10:15 AM KETTLE COOK): Stable infrarenal abdominal aortic aneurysms currently measuring 4.6 x 4.7 cm. 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 Patient remains asymptomatic. Discussed with Dr. Fransisco Buchanan. Plan: Follow up in 6 months with CTA abdomen and pelvis. Assessment & Plan (01/05/2023 4:09 PM CDT): 4.7 cm infrarenal abdominal aortic aneurysm with no growth. No indication for further imaging and/or intervention. Follow-up with yearly duplex surveillance. Assessment & Plan (12/07/2019 8:53 AM CDT): Overall the patient's abdominal aortic aneurysm remains stable at 4.3 cm. He is asymptomatic. Will continue 1 year duplex surveillance Assessment & Plan (11/17/2018 12:27 PM CDT): Impression: Stable small infrarenal abdominal aortic aneurysm measuring 4.2 cm in greatest diameter. He continues to be asymptomatic. Plan: Follow-up in 1 year for re-evaluation with aortic duplex. Essential hypertension 03/24/2018 Assessment & Plan (12/25/2023 12:09 PM CDT): Hypertension chronic controlled. Continue medical management. Assessment & Plan (01/05/2023 4:07 PM CDT): Hypertension chronic and controlled. Continue current medical management. Assessment & Plan (12/07/2019 8:53 AM CDT): Per patient blood pressure is controlled. Continue antihypertensive regimen per PCP Assessment & Plan (11/17/2018 12:27 PM CDT): Impression: Stable blood pressure with use of medications. Plan: Further management as per primary care provider. 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 Continue current medical management. Encounters Date Type Department Care Team Description 01/09/2025 1:45 PM CDT Office Visit [facility] at [address] [place] [address] Deon Mota MD RBBB (Primary Dx); Coronary artery disease involving pechanga coronary artery of pechanga heart without angina pectoris; Paroxysmal atrial fibrillation (HCC) 12/27/2024 2:00 PM CDT Ancillary Procedure [facility] [address] [place] [address] [place] [phone] Atrial fibrillation, unspecified type (HCC) 12/27/2024 Telephone [facility] [address] [place] [address] [address] [place] [phone] Deon Mota MD 12/19/2024 Telephone [facility] [address] [place] [address] [address] [place] [phone] Deon Mota MD 12/18/2024 11:15 AM CDT Procedure visit [facility] [address] [place] [address] [address] [place] [phone] Atrial fibrillation, unspecified type (HCC) 12/11/2024 1:30 PM CDT Office Visit [facility] [address] [place] [address] [address] [place] [phone] Deon Mota MD Atrial fibrillation, unspecified type (HCC) (Primary Dx); Coronary artery disease involving pechanga coronary artery of pechanga heart without angina pectoris; RBBB; Statin intolerance 11/29/2024 10:45 AM CDT Office Visit [facility] [address] [facility] [address] [place] [address] Carolina Rodriguez, CASSI Aneurysm of infrarenal abdominal aorta, unspecified whether ruptured (Primary Dx); Essential hypertension 11/24/2024 Telephone [facility] [address] [facility] [address] [place] [address] Fransisco Buchanan MD 11/22/2024 10:55 AM CDT - 11/22/2024 11:59 PM CDT Hospital Encounter [facility] [employer] [address] [facility] [place] [address] Discharge Disposition: Discharge to home or self care from Last 3 Months Immunizations Immunization Administration Dates Next Due Influenza, Quadrivalent, Rec ombinant, Egg Free, Preservative Free, Intramuscular 05/09/2018 Surgical History Surgery Date Site/Laterality Comments COLONOSCOPY 10/15/21 Medical History Medical History Date Comments Hypertension Hypertension Hx Other Medical history of GI b leeding Heart attack (HCC) Family History Medical History Relation Name Comments Heart attack Father Myocardial Infa rction; Cause of : Myocardial Infarction Relation Name Status Comments Father Mother Social History Tobacco Use Types Packs/Day Years Used Date Smoking Tobacco: Former Smokeless Tobacco: Never Tobacco Cessation:Counseling Given: Not Answered Alcohol Use Standard Drinks/Week Comments Yes 14 (1 standard drink = 0.6 oz pu re alcohol) Sex and Gender Information Value Date Recorded Sex Assigned at Not on file Legal Sex Male 2:06 AM KETTLE COOK Gender Identity Not on file Sexual Orientation Not on file Obstetrics History Last Filed Vital Signs Vital Sign Reading Time Taken Comments Blood Pressure 142/70 01/09/2025 1:36 PM CDT Pulse 69 01/09/2025 1:36 PM CDT Temperature 36 C (96.8 F) 11/16/2018 1:51 PM CDT Respiratory Rate - - Oxygen Saturation 96% 01/09/2025 1:36 PM CDT Inhaled Oxygen Concentration - - Weight 65.6 kg (144 lb 9.6 oz) 01/09/2025 1:36 P M CDT Height 172.7 cm (5' 8) 01/09/2025 1:36 PM CDT Body Mass Index 21.99 01/09/2025 1:36 PM CDT Plan of Treatment Health Maintenance Due Date Last Done Comments Depression Screening 1935 DTaP/Tdap/Td Vaccine (1 - Tdap) 1948 Hepatitis B Screening 1955 Pneumococcal vaccine 65+ (1 of 2 - PCV) 1956 Zoster Vaccine (1 of 2) 1987 Well Visit 65+ 2002 Fall Risk Assessment 10/11/2020 10/12/2019 Influenza Vaccine (#1) 2025 05/09/2018 Procedures Procedure Name Priority Date/Time Associated Diagnosis Comments TRANSTHORACIC ECHO (TTE) COMPLETE W DOPPLER/CF WO CONTRAST Routine 12/27/2024 2:54 PM CDT Atrial fibrillation, unspecified type (HCC) ECG 12-LEAD Routine 12/18/2024 11:19 AM CDT Atrial fibrillation, unspecified type (HCC) ECG 12-LEAD Routine 12/11/2024 1:21 PM CDT Atrial fibrillation, unspecified type (HCC) CT BODY OUTSIDE REFERENCE Routine 11/22/2024 10:55 AM CDT from Last 3 Months Results * TRANSTHORACIC ECHO (TTE) COMPLETE W DOPPLER/CF WO CONTRAST (12/27/2024 2:54 PM CDT) Estimated EF 65-70 % CONS SCIMAGE EF Mod BP 65 % CONS SCIMAGE Anatomical Region Laterality Modality Ultrasound 12/27/2024 1:48 PM CDT Narrative 12/27/2024 4:23 PM CDT [facility] [address], [place] [address] [address] [facility] [address], [place] [address] P:[phone] P:[phone] Echocardiographic Report Patient Name: RANDY DENNEY G : 1935 Study Date: 12/27/2024 1:48:15 PM Gender: M Legal Entity Controller: [facility])([place]), [facility] Location: [facility] Provider: DEON MOTA Height(Cm): 173 BSA: 1.78 Weight(Kg): 65.8 Heart Rate: 70 BP: 150 / 74 Quality: Good Order Provider: DEON MOTA PROCEDURES: Echocardiographic Report: Transthoracic echocardiogram with complete 2D, M-Mode, and color Doppler examination. With Strain Analysis. INDICATIONS: I48.91 Unspecified atrial fibrillation. MEASUREMENTS: 2D/MM Value Range Doppler Value Range EF Mod BP 65 % [ 52 - 72 ] KAILEY Vmax 1.61 cm2 [ 2.00 - 4.00 ] Estimated EF 65-70 % AV Mean PG 10 mmHg LV GLS -12.90 % AV Peak Tor 2.07 m/s [ 1.00 - 1.70 ] LVIDd 2D 3.34 cm [ 4.20 - 5.80 ] AV Peak PG 17 mmHg LVIDs 2D 2.18 cm [ 2.50 - 4.00 ] AV VTI 38.67 cm LVPWd 2D 1.02 cm [ 0.60 - 1.00 ] LVOT Diam 2.02 cm [ 1.70 - 2.10 ] IVSd 2D 1.13 cm [ 0.60 - 1.00 ] LVOT Peak Tor 1.04 m/s [ 0.70 - 1.10 ] AoR Diam 2D 4.29 cm [ 3.10 - 3.70 ] LVOT VTI 20.94 cm LA Volume 45.68 ml [ 18.00 - 58.00 ] MV E Peak Tor 0.78 m/s [ 0.60 - 1.30 ] LA Volume Index 26 cc/m2 [ 16 - 28 ] MV A Peak Tor 1.10 m/s [ 1.00 - 1.20 ] RA Volume 33.29 ml MV Decel Time 391 msec [ 104 - 258 ] PV Peak Tor 0.68 m/s [ 0.40 - 0.80 ] TR Peak Tor 2.38 m/s [ 1.00 - 2.80 ] TR Peak PG 23 mmHg RV S` 10.56 mmHg Lateral E` 0.04 m/s [ 0.10 - 0.15 ] Septal E` 0.03 m/s [ 0.08 - 0.15 ] E` 0.04 m/s E/E` 22 Tapse 2.02 cm [ 1.71 - 5.00 ] 2D/MM Value Range Doppler Value Range - FINDINGS: Interpretation Site: Exam was interpreted at [facility]. Left Ventricle: Normal left ventricular systolic function. No focal wall motion abnormalities. Normal left ventricular size. Mild concentric left ventricular hypertrophy with prominent basal septal hypertrophy. Ejection fraction is measured at 65 %. Ejection Fraction is visually estimated to be 65-70 %. Global Longitudinal Strain is -13 %. GLS is abnormal. Right Ventricle: Normal right ventricular size. Normal right ventricular systolic function. Left Atrium: There is moderate enlargement of left atrium. Right Atrium: There is mild enlargement of right atrium. Atrial Septum: Thin and hypermobile atrial septum. Mitral Valve: Mitral valve leaflets appear severely thickened. Moderate mitral annular calcification. Mild mitral valve regurgitation. Aortic Valve: Mild aortic stenosis. Peak Velocity of 2.07 m/s. Mean gradient of 10.0 mmHg. Valve area of 1.6 cm2. Aortic cusps appear moderately calcified. Trileaflet aortic valve. Trace aortic valve regurgitation. Tricuspid Valve: Normal appearance of the tricuspid valve. Normal right ventricular systolic pressure. Estimated peak RVSP is 25-30 mmHg. Mild tricuspid regurgitation. Pulmonic Valve: Normal appearance of the pulmonic valve. No pulmonic stenosis. Mild pulmonic regurgitation. Pericardium: Trivial pericardial effusion. Aorta: Sinus of Valsalva is dilated. Sinus of Valsalva 4.3 cm. IVC: Normal size and normal respiratory collapse consistent with normal right atrial pressure (<5 mmHg). CONCLUSIONS: Normal left ventricular systolic function. No focal wall motion abnormalities. Normal left ventricular size. Mild concentric left ventricular hypertrophy with prominent basal septal hypertrophy. Ejection fraction is measured at 65 %. Ejection Fraction is visually estimated to be 65-70 %. Global Longitudinal Strain is -13 %. GLS is abnormal. There is moderate enlargement of left atrium. There is mild enlargement of right atrium. Mitral valve leaflets appear severely thickened. Moderate mitral annular calcification. Mild aortic stenosis. Peak Velocity of 2.07 m/s. Mean gradient of 10.0 mmHg. Valve area of 1.6 cm2. Aortic cusps appear moderately calcified. Mild tricuspid regurgitation. Mild pulmonic regurgitation. Sinus of Valsalva is dilated. Sinus of Valsalva 4.3 cm. Normal sinus rhythm. Electronically Signed By: Cosme Mccray MD 12/27/2024 4:22:55 PM CDT Procedure Note Cosme Mccray MD - 12/27/2024 [facility] [address] [facility] [address], [place] [address] [address] [facility] [address] [address] P:[phone] P:[phone] Echocardiographic Report Patient Name: RANDY DENNEY G : 1935 Study Date: 12/27/2024 1:48:15 PM Gender: M Legal Entity Controller: [facility]), [facility] Location: [facility] Provider: DEON MOTA Height(Cm): 173 BSA: 1.78 Weight(Kg): 65.8 Heart Rate: 70 BP: 150 / 74 Quality: Good Order Provider: DEON MOTA PROCEDURES: Echocardiographic Report: Transthoracic echocardiogram with complete 2D, M-Mode, and color Dopplerexamination. With Strain Analysis. INDICATIONS: I48.91 Unspecified atrial fibrillation. MEASUREMENTS: 2D/MM Value Range Doppler ValueRange EF Mod BP 65 % [ 52 - 72 ] KAILEY Vmax 1.61cm2 [ 2.00 - 4.00 ] Estimated EF 65-70 % AV Mean PG 10mmHg LV GLS -12.90 % AV Peak Tor 2.07m/s [ 1.00 - 1.70 ] LVIDd 2D 3.34 cm [ 4.20 - 5.80 ] AV Peak PG 17mmHg LVIDs 2D 2.18 cm [ 2.50 - 4.00 ] AV VTI 38.67cm LVPWd 2D 1.02 cm [ 0.60 - 1.00 ] LVOT Diam 2.02cm [ 1.70 - 2.10 ] IVSd 2D 1.13 cm [ 0.60 - 1.00 ] LVOT Peak Tor 1.04m/s [ 0.70 - 1.10 ] AoR Diam 2D 4.29 cm [ 3.10 - 3.70 ] LVOT VTI 20.94cm LA Volume 45.68 ml [ 18.00 - 58.00 ] MV E Peak Tor 0.78m/s [ 0.60 - 1.30 ] LA Volume Index 26 cc/m2 [ 16 - 28 ] MV A Peak Tor 1.10m/s [ 1.00 - 1.20 ] RA Volume 33.29 ml MV Decel Time 391msec [ 104 - 258 ] PV Peak Tor 0.68 m/s [ 0.40 - 0.80 ] TR Peak Tor 2.38 m/s [ 1.00 - 2.80 ] TR Peak PG 23 mmHg RV S` 10.56 mmHg Lateral E` 0.04 m/s [ 0.10 - 0.15 ] Septal E` 0.03 m/s [ 0.08 - 0.15 ] E` 0.04 m/s E/E` 22 Tapse 2.02 cm [ 1.71 - 5.00 ] 2D/MM Value Range Doppler ValueRange - FINDINGS: Interpretation Site: Exam was interpreted at [facility]. Left Ventricle: Normal left ventricular systolic function. No focal wall motionabnormalities. Normal left ventricular size. Mild concentric left ventricular hypertrophy withprominent basal septal hypertrophy. Ejection fraction is measured at 65 %. EjectionFraction is visually estimated to be 65-70 %. Global Longitudinal Strain is -13 %. GLS isabnormal. Right Ventricle: Normal right ventricular size. Normal right ventricular systolicfunction. Left Atrium: There is moderate enlargement of left atrium. Right Atrium: There is mild enlargement of right atrium. Atrial Septum: Thin and hypermobile atrial septum. Mitral Valve: Mitral valve leaflets appear severely thickened. Moderate mitral annularcalcification. Mild mitral valve regurgitation. Aortic Valve: Mild aortic stenosis. Peak Velocity of 2.07 m/s. Mean gradient of 10.0mmHg. Valve area of 1.6 cm2. Aortic cusps appear moderately calcified. Trileaflet aorticvalve. Trace aortic valve regurgitation. Tricuspid Valve: Normal appearance of the tricuspid valve. Normal right ventricularsystolic pressure. Estimated peak RVSP is 25-30 mmHg. Mild tricuspid regurgitation. Pulmonic Valve: Normal appearance of the pulmonic valve. No pulmonic stenosis. Mildpulmonic regurgitation. Pericardium: Trivial pericardial effusion. Aorta: Sinus of Valsalva is dilated. Sinus of Valsalva 4.3 cm. IVC: Normal size and normal respiratory collapse consistent with normal rightatrial pressure (<5 mmHg). CONCLUSIONS: Normal left ventricular systolic function. No focal wall motionabnormalities. Normal left ventricular size. Mild concentric left ventricular hypertrophy withprominent basal septal hypertrophy. Ejection fraction is measured at 65 %. EjectionFraction is visually estimated to be 65-70 %. Global Longitudinal Strain is -13 %. GLS isabnormal. There is moderate enlargement of left atrium. There is mild enlargement of right atrium. Mitral valve leaflets appear severely thickened. Moderate mitral annularcalcification. Mild aortic stenosis. Peak Velocity of 2.07 m/s. Mean gradient of 10.0mmHg. Valve area of 1.6 cm2. Aortic cusps appear moderately calcified. Mild tricuspid regurgitation. Mild pulmonic regurgitation. Sinus of Valsalva is dilated. Sinus of Valsalva 4.3 cm. Normal sinus rhythm. Electronically Signed By: Cosme Mccray MD 12/27/2024 4:22:55 PM CDT us Deon Mota MD CV ECHO PROCEDURES Final Result * ECG 12 lead (12/18/2024 11:19 AM CDT) us Deon Mota MD ECG ORDERABLES Edited R esult - Final * ECG 12 lead (12/11/2024 1:21 PM CDT) us Deon Mota MD ECG ORDERABLES Edited R esult - Final * CT Body Outside Reference (11/22/2024 10:55 AM CDT) Narrative [email or web address] - 11/24/2024 3:19 PM CDT This order has been auto-finalized and does not contain a result. us Provider Transcribed Order IMG CT PROCEDURES Fin al Result ABBIE_[email or web address]_MHE from Last 3 Months Insurance MEDICARE [facility] PPO AET MEDICARE Care Teams Change Control Coordinator Relationship Specialty Start Date End Date Gemini Millan MD [address] [place] [address] [address] [place] [id number] PCP - General Family Medicine 11/29/24 Jose Su MD [address] [address] 11/16/18 Fransisco Buchanan MD [address] [facility] [address] [place] [address] Surgeon Vascular Surgery 12/01/21
--- OUTSIDE RECORDS SUMMARY | 2025-02-07 20:04 | XMS_ITS | Clinical Summary ---
Author Organization [facility] Address [address] [place] [address] Phone Care Team Providers Care Primary Care Sales Representative Name Role Phone Mark Morales MD Primary Care Provider Gibran Albarran MD Unavailable [phone] Allergies Active Allergy Reactions Criticality Noted Date Comments Gabapentin Other (see Comments) 10/02/2022 Blood pressure dropped, tongue went numb Medications metoprolol tartrate (LOPRESSOR) 25 MG Tablet Take 25 mg by mouth 2 times daily. Active aspirin EC 81 MG Tablet Delayed Response Take 81 mg by mouth daily. Active pregabalin (LYRICA) 50 MG Capsule Take 50 mg by mouth 2 times daily. Active Family History Medical History Relation Name Comments Diabetes Father Relation Name Status Comments Father Mother Social History Tobacco Use Types Packs/Day Years Used Date Smoking Tobacco: Former Cigarettes Q uit: 06/14/1984 Smokeless Tobacco: Never Tobacco Cessation:Counseling Given: Not Answered Alcohol Use Standard Drinks/Week Comments Yes 10 (1 standard drink = 0.6 oz pu re alcohol) Sex and Gender Information Value Date Recorded Sex Assigned at Not on file Legal Sex Male 10:57 AM CDT Gender Identity Not on file Sexual Orientation Not on file Last Filed Vital Signs Vital Sign Reading Time Taken Comments Blood Pressure 130/78 12/28/2022 1:18 PM CDT Pulse 68 12/28/2022 1:18 PM CDT Temperature 35.8 C (96.4 F) 12/28/2022 1:18 PM CDT Respiratory Rate 18 12/28/2022 1:18 PM CDT Oxygen Saturation 98% 12/28/2022 1:18 PM CDT Inhaled Oxygen Concentration - - Weight 64.9 kg (143 lb) 12/28/2022 1:18 PM CDT Height 172.7 cm (5' 8) 12/28/2022 1:18 PM CDT Body Mass Index 21.74 12/28/2022 1:18 PM CDT Plan of Treatment Health Maintenance Due Date Last Done Comments Hepatitis C Virus (HCV) Screening 1935 TdaP Immunization 1935 Pneumococcal Immunization (50+ years) (1 of 1 - PCV) 1987 Zoster Immunization (1 of 2) 1987 Respiratory Syncytial Virus (RSV) Immunization (Adult) (1 - 1-dose 75+ series) 2012 SARS-COV-2 Immunization ( season) 2024 09/01/2020, 08/11/2020 Influenza Immunization (#1) 02/12/202505/15, 03/29/2020, 06/05/2019, Additional history exists Hepatitis B Immunization Aged Out No longer eligible based on patient's age to complete this topic Human Papillomavirus (HPV) Immunization Aged Out No longer eligible based on patient's age to complete this topic Meningococcal Immunization (ACWY) Aged Out No longer eligible based on patient's age to complete this topic Rotavirus Immunization Aged Out No lo nger eligible based on patient's age to complete this topic Insurance MEDICARE [facility] MEDICARE C AET[employer] Care Teams Primary Care Sales Representative Relationship Specialty Start Date End Date Mark Morales MD [address] [facility] [address] [id number] PCP - General Family Medicine 09/02/22 Gibran Albarran MD [address] [place] [address] Consulting Physician Neurology 10/02/22
[2025-02-07 20:08] LABS: Troponin I < 0.012 ng/mL (0.000-0.034)
--- NOTE | 2025-02-07 20:19 | ED_ITS ---
HPI - General Adult General Chief complaint: Chest Pain Stated complaint: CP/v-tach Time Seen by Provider: 02/07/25 19:34 History of Present Illness HPI narrative: This is an 89-year-old male presenting ED with chief complaint of chest pain. Patient was having dinner with his when he developed chest pain. Says it was a heaviness across his chest. He says he felt very weak, and flushed and felt like he had a bowel movement. EMS was then called. They arrived he was in atrial fibrillation. He then had a nonsustained run ventricular tachycardia during which he syncopized. He then all converted back to normal sinus rhythm. During this time he had a bowel movement. On arrival to the ED the patient is asymptomatic. He has no complaints at this time. Patient has a history of paroxysmal atrial fib which is rhythm controlled with sotalol. He is on Eliquis. Related Data Home Medications ?Medication ?Instructions ?Recorded ?Confirmed ?Last Taken ?Type aspirin 81 mg tablet,delayed 81 mg PO DAILY 05/02/19 0 01/05/25 10/14/21 History release (Adult Aspirin Regimen) fluorouracil 5 % topical cream See Rx Instructions .Ro [place] 10/01/21 01/05/25 10/14/21 History .COMPLEX PRN lesions nifedipine 10 mg capsule 10 mg PO Q12H 09/17/2301/05 Unknown History Held on 09/27/24. Instructions: Patient Condition vitamin B complex 1 tablet PO DAILY 10/26/23 0 01/05/25 Unknown History Allergies Allergy/AdvReac Type Severity Reaction Status Date / Time gabapentin Allergy Severe Anaphylaxis Verified 01/05/25 11:22 [facility] Past Medical History Medical History Peripheral neuropathy Crohn's disease involving terminal ileum Chronic diarrhea Ileitis Obstructive sleep apnea on CPAP AAA (abdominal aortic aneurysm) without rupture Followed Dr Stephens Vascular surgeon 12-02 aorta 4.3 cm repeat next year Benign essential HTN CAD (coronary artery disease) Actinic keratosis History of SCC (squamous cell carcinoma) of skin History of basal cell carcinoma (BCC) Family History Family History Father Diabetes mellitus Social History Social History Smoking packs per day: 3 Smoking cigarettes per day: 60.0 Years smoked: 25 Smoking pack-years: 75.00 Smoking status: Former smoker Tobacco type: cigarettes Second hand tobacco smoke exposure: No Alcohol intake: current Drinks per week: 10 Alcohol use details: Beer Substance use: never Substance use type: does not use Lack of Transportation: No Lack of Food: Never True Current Housing: I Have Housing Concerned About Future Housing: No Difficulty Paying Gas/Electric Bills: No Currently Unemployed: No Education: Associate Degree Difficulty w/ Childcare or Family Care: No Living arrangements: with family Occupation/Education: retired Gender identity (if verbalized by the patient): Male Spiritual care concerns: No Agree to blood products: Yes Exam 2 Narrative: APPEARANCE: No apparent distress. Head: atraumatic. EYES: EOMI, NOSE: Atraumatic NECK: Trachea midline RESPIRATORY: No increased rate of breathing clear to auscultation CARDIOVASCULAR: RRR, no peripheral edema ABDOMINAL: Non-distended soft nontender MUSCULOSKELETAl: No obvious deformities NEURO: Alert. Moving 4/4 extremities SKIN:: Warm, dry. Normal color PSYCHIATRIC: Normal affect Course Vital Signs Vital signs: Vital Signs Temperature 98.1 F 02/07/25 19:17 Pulse Rate 88 02/07/25 19:17 Respiratory Rate 22 H 02/07/25 19:17 Blood Pressure 139/88 02/07/25 19:17 Pulse Oximetry 96 02/07/25 19:17 Oxygen Delivery Room Air 02/07/25 19:17 Temperature 98.1 F 02/07/25 19:17 Pulse Rate 88 02/07/25 19:17 Respiratory Rate 22 H 02/07/25 19:17 Blood Pressure 139/88 02/07/25 19:17 Pulse Oximetry 96 02/07/25 19:17 Oxygen Delivery Room Air 02/07/25 19:17 Medical Decision Making MDM Narrative Medical decision making narrative: -Course: 89-year-old male presenting with chest pain and syncope. EMS caught a run of ventricular tachycardia which was placed in the patient's chart. On arrival to the ED the patient is asymptomatic. EKG shows normal sinus rhythm with intraventricular conduction delay. No ischemic changes. Initial troponin was negative. Case was discussed with Dr. Mccray, the dyed yarn operator on-call. As the patient is on sotalol he cannot be placed on amiodarone due to prolonged QT. patient will remain on sotalol now. The rest the patient's workup including initial troponin, CBC metabolic panel unremarkable. Magnesium phos are still pending. Patient will be admitted the hospital for further management of his cardiac dysrhythmia/syncope. Code status was discussed with the patient and family. An in-hospital v-tach arrest has relatively good survival rates and the patient would like to be full code in the current medical situation. -DDX includes but is not limited to: ACS, ventricular tachycardia, tachycardia with aberrancy -Co-morbidities complicating care: Paroxysmal AFib rhythm control with sotalol, hypertension, on eliquis. Vital Signs Vital Signs: Vital Signs Temperature 98.1 F 02/07/25 19:17 Pulse Rate 88 02/07/25 19:17 Respiratory Rate 22 H 02/07/25 19:17 Blood Pressure 139/88 02/07/25 19:17 Pulse Oximetry 96 02/07/25 19:17 Oxygen Delivery Room Air 02/07/25 19:17 Temperature 98.1 F 02/07/25 19:17 Pulse Rate 88 02/07/25 19:17 Respiratory Rate 22 H 02/07/25 19:17 Blood Pressure 139/88 02/07/25 19:17 Pulse Oximetry 96 02/07/25 19:17 Oxygen Delivery Room Air 02/07/25 19:17 Lab Data 02/07/25 19:32 02/07/25 19:32 Labs: Lab Results 02/07/25 02/07/25 Range/Units 19:32 20:25 WBC 9.7 (4.5-10.0) K/mm3 RBC 4.63 (4.6-6.20) M/mm3 Hgb 13.1 L (14.0-18.0) g/dL Hct 41.2 L (42.0-52.0) % MCV 89.0 (80-100) fl MCH 28.3 (26-34) pg MCHC 31.8 L (32-36) g/dl RDW 14.3 (11.5-14.5) % Plt Count 305 (150-375) k/mm3 MPV 8.9 (7.4-10.4) fl Immature Gran % (Auto) 0.2 (0-0.5) % Neut % (Auto) 61.4 (45.5-73.1) % Lymph % (Auto) 28.1 (18.3-44.2) % Dillon % (Auto) 7.7 (2.6-8.5) % Eos % (Auto) 1.9 (0-4.4) % Baso % (Auto) 0.7 (0.2-1.2) % Lymph # (Auto) 2.72 (0.9-3.2) K/mm3 [place] # (Auto) 0.8 H (0.1-0.6) K/mm3 Eos # (Auto) 0.2 (0-0.3) K/mm3 Baso # (Auto) 0.1 (0.0-0.1) K/mm3 Abs Immat Gran (auto) 0.02 (0.00-0.031) K/mm3 Absolute Neuts (auto) 6.0 (1.3-6.7) K/mm3 Absolute Nucleated RBC 0.000 (0.0-0.012) K/mm3 Nucleated RBC % 0.0 (0.0-0.2) % PT 14.6 (11.1-14.7) Seconds INR 1.1 APTT 31.8 (22.3-36.8) Seconds Sodium 137 (137-145) mmol/L Potassium 3.9 (3.4-5.0) mmol/L Chloride 101 (98-107) mmol/L Carbon Dioxide 29 (22-30) mmol/L Anion Gap 7 (4-12) mmol/L BUN 20 (9-20) mg/dL Creatinine 1.11 (0.7-1.3) mg/dL Estim Creat Clear Calc Not Reportable Estimated GFR > 60 (59 - ) Glucose 193 H (65-110) mg/dL Calcium 8.7 (8.4-10.2) mg/dL Phosphorus 3.6 (2.5-4.5) mg/dL Magnesium 1.7 (1.6-2.3) mg/dL Total Bilirubin 0.8 (0.2-1.3) mg/dL AST 24 (17-59) U/L ALT 11 (6-50) U/L Alkaline Phosphatase 89 (38-126) U/L Troponin I < 0.012 (0.000-0.034) ng/mL Total Protein 7.0 (6.3-8.2) g/dL Albumin 3.8 (3.5-5.1) g/dL Lipase 38 (23-300) U/L Discharge Plan Discharge Clinical Impression: Ventricular tachycardia Patient Disposition: Still a Patient Condition: Guarded Prognosis Patient Language: [place] Prescriptions: No Action nifedipine 10 mg capsule 10 mg PO Q12H pregabalin 50 mg capsule 50 mg PO BID Qty: 90 2RF Rx Instructions: May increase up to 3 times a day if necessary mecobalamin (vitamin B12) 10,000 mcg recon soln 1,000 mcg IM . monthly Qty: 1 12RF sertraline 25 mg tablet 25 mg PO DAILY Qty: 30 1RF aspirin [Adult Aspirin Regimen] 81 mg tablet,delayed release (DR/EC) 81 mg PO DAILY fluorouracil 5 % cream See Rx Instructions .ROUTE .COMPLEX PRN (Reason: lesions) Rx Instructions: APPLY SUFFICIENT AMOUNT TOPICALLY TO COVER ALL LESIONS TWICE DAILY FOR 4 WEEKS Eliquis 5 mg tablet 5 mg PO BID Qty: 30 0RF cyanocobalamin (vitamin B-12) 1,000 mcg/mL solution 1,000 mcg IM WEEKLY Qty: 10 0RF Rx Instructions: 1 ml weekly for 3 weeks, then monthly thereafter thiamine HCl (vitamin B1) 50 mg tablet 50 mg PO DAILY Qty: 90 3RF vitamin B complex Tablet 1 tablet PO DAILY metoprolol tartrate 25 mg tablet See Rx Instructions .ROUTE .COMPLEX Qty: 180 0RF Dose Instruction: TAKE 1 TABLET BY MOUTH TWICE DAILY Rx Instructions: TAKE 1 TABLET BY MOUTH TWICE DAILY oxycodone-acetaminophen 5-325 mg tablet 1 tablet PO BID PRN (Reason: pain) Qty: 120 0RF Follow-up/Referrals: Vero Prado, AUDIOMETRIC TECHNICIAN-C [Primary Care Provider, Family Practice]
[2025-02-07 20:54] LABS: Magnesium 1.7 mg/dL (1.6-2.3)
[2025-02-07 22:18] VITALS: PULSE 81
[2025-02-07] MEDS: APIXABAN 5 MG TABLET PO (22:18)
[2025-02-07 22:24] VITALS: BP 147/84; PULSE 84; RESP 18; O2SAT 96
--- NOTE | 2025-02-07 22:30 | ECG_ITS ---
Test Date: 2025-02-07 22:34:22 Measurements Intervals [place] Rate: 79 P: 26 LA: 223 QRS: 59 QRSD: 139 T: 0 QT: 397 QTc: 457 Interpretive Statements SINUS RHYTHM WITH FIRST DEGREE AV BLOCK RIGHT BUNDLE BRANCH BLOCK MINIMAL Q WAVES- INFERIOR LEADS ABNORMAL ECG Compared to ECG 02/07/2025 19:26:46 First degree AV block now present Electronically Signed On 02-08-2025 06:11:56 CDT by Adan Shook D.O.
[2025-02-07 22:58] LABS: Troponin I 0.129 ng/mL (0.000-0.034)
[2025-02-07 23:05] VITALS: BP 144/75; PULSE 86; RESP 16; TEMP 36.5; O2SAT 96
--- NOTE | 2025-02-07 23:05 | ADMGEN ---
This patient, Randy Gee, was admitted to IMU Room 202-01 via bed with one tech and no issues. Patient/family oriented to hospital policies and general routines including ID bracelet, bed and alarms, visiting hours, pain management, procedures, bathroom and other care routines, personal items, smoking policy, room service/diet, and visiting hours. Information on how to activate the Rapid Response Team has been discussed. Patient/Family are encouraged to report perceived risks to care and to ask questions if they do not understand what they are told or what they should do.
[2025-02-07 23:09] VITALS: BMI 20.9
--- NOTE | 2025-02-07 23:12 | PM.IMHP ---
H&P: HPI History of Present Illness Date/Time: 02/07/25 21:12 Chief Complaint: Ventricular Tachycardia, chest pressure, elevated troponin Narrative: Randy is a male patient who began feeling unwell during and after dinner. He described a sudden onset of chest tightness, profuse sweating, and an urgent need to move his bowels, which he was unable to do before needing to sit down. He did not experience classic chest pain but felt as if someone was sitting on his chest. He remained coherent throughout the episode, as confirmed by his daughter, but was unable to feel his pulse. His /daughter called 911, and EMS arrived within minutes (approximately five to seven minutes) due to their residence being very close to the EMS station. On EMS arrival, Randy was found to be in ventricular tachycardia, with his heart rhythm bouncing in and out of irregular rhythm. He did not lose consciousness or require defibrillation. He was given four baby aspirin by EMS. He also received nitroglycerin with relief of chest discomfort. Randy is prescribed Sotalol 80 mg tablets, which he splits and takes 40 mg twice daily (morning between 7?8 AM and evening around 6:30 PM), but he missed his evening dose today. He also takes Eliquis 5 mg, both medications taken together. He is followed by Dr. Hollis with [facility] Cardiology. Review of Systems Review of Systems: Constitutional: Profuse sweating, sudden onset of feeling unwell. No fever, chills, or weight change reported. Cardiovascular: Chest tightness, inability to feel pulse, episode of ventricular tachycardia. No syncope or palpitations reported. Respiratory: No shortness of breath, cough, or wheezing reported. Gastrointestinal: Urgent need to move bowels, unable to do so before sitting down. No nausea, vomiting, diarrhea, or abdominal pain reported. Neurological: Remained coherent throughout episode. No weakness, numbness, dizziness, or headache reported. Skin: Profuse sweating. No rashes or lesions reported. All systems reviewed & are unremarkable except as noted in HPI and below PMFSH Past Medical History Medical History Murmur, cardiac Chest tightness Chest pain of uncertain etiology Glucose intolerance Weight loss Vitamin B 12 deficiency Chronic rhinosinusitis Constipation, chronic Diarrhea Frequent urination at night Prostate cancer genetic susceptibility Dr Tarango on shots over 10 years Squamous cell carcinoma skin of arm Skin neoplasm Adenocarcinoma of prostate COVID-19 Shingles Osteoarthritis of right thumb Right shoulder pain Fall Skin cancer screening Benign mole Fatigue Bilateral lower extremity edema Night sweats from tylenol Chronic inflammatory demyelinating polyneuropathy Headache ADAPTIVE PHYSICAL EDUCATOR demyelination 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 Peripheral neuropathy Crohn's disease involving terminal ileum Chronic diarrhea Ileitis Obstructive sleep apnea on CPAP AAA (abdominal aortic aneurysm) without rupture Followed Dr Stephens Vascular surgeon 12-02 aorta 4.3 cm repeat next year Benign essential HTN CAD (coronary artery disease) Actinic keratosis History of SCC (squamous cell carcinoma) of skin History of basal cell carcinoma (BCC) Family History Family History Father Diabetes mellitus Social History Social History Smoking packs per day: 3 Smoking cigarettes per day: 60.0 Years smoked: 25 Smoking pack-years: 75.00 Smoking status: Former smoker Tobacco type: cigarettes Second hand tobacco smoke exposure: No Alcohol intake: current Drinks per week: 10 Alcohol use details: Beer Substance use: never Substance use type: does not use Lack of Transportation: No Lack of Food: Never True Current Housing: I Have Housing Concerned About Future Housing: No Difficulty Paying Gas/Electric Bills: No Currently Unemployed: No Education: Associate Degree Difficulty w/ Childcare or Family Care: No Living arrangements: with family Occupation/Education: retired Gender identity (if verbalized by the patient): Male Spiritual care concerns: No Agree to blood products: Yes Meds Home Medications and Allergies Home Medications ?Medication ?Instructions ?Recorded ?Confirmed ?Type fluorouracil 5 % topical cream See Rx Instructions .Route 10/01/21 02/07/25 History .COMPLEX PRN lesions apixaban 5 mg tablet (Eliquis) 5 mg PO Q12H 02/07/25 02/07/25 History nifedipine 30 mg tablet,extended 30 mg PO DAILY 02/07/25 02/07/25 History release 24 hr sotalol 80 mg tablet 40 mg PO Q12H 02/07/25 02/07/25 History Allergies Allergy/AdvReac Type Severity Reaction Status Date / Time gabapentin Allergy Severe Anaphylaxis Verified 01/05/25 11:22 Vital Signs Vital Signs - 24 hr 02/07/25 19:17 02/07/25 22:18 02/07/25 22:24 Temperature 36.7 C Pulse Rate 88 81 84 Respiratory Rate 22 H 18 Blood Pressure 139/88 147/84 H Pulse Oximetry 96 96 Oxygen Delivery Room Air Exam Narrative: GENERAL: Fatigued appearing, well-nourished, and in no acute distress. HEAD: Normocephalic, atraumatic. ENT:? Mucous membranes moist. CHEST: Clear to auscultation.? No respiratory distress. HEART: Regular rate and rhythm. ? Normal peripheral pulses. ABDOMEN: Soft, nontender, nondistended. EXTREMITIES: Normal range of motion. No peripheral edema. SKIN: Warm dry normal color NEURO: Alert and oriented x3. PSYCH: Normal mood and affect H&P: Results Labs Labs: Short CBC 02/07/25 Range/Units 19:32 WBC 9.7 (4.5-10.0) K/mm3 Hgb 13.1 L (14.0-18.0) g/dL Hct 41.2 L (42.0-52.0) % Plt Count 305 (150-375) k/mm3 BMP 02/07/25 19:32 Sodium 137 Potassium 3.9 Chloride 101 Carbon Dioxide 29 BUN 20 Creatinine 1.11 Glucose 193 H Calcium 8.7 Cardiac Enzymes 02/07/25 02/07/25 Range/Units 19:32 22:20 Troponin I < 0.012 0.129 H* D (0.000-0.034) ng/mL Liver Function 02/07/25 Range/Units 19:32 Total Bilirubin 0.8 (0.2-1.3) mg/dL AST 24 (17-59) U/L ALT 11 (6-50) U/L Alkaline Phosphatase 89 (38-126) U/L Albumin 3.8 (3.5-5.1) g/dL Pulse Oximetry SpO2 results: 96% on room air Attestation: I personally reviewed and interpreted this pulse oximetry as follows: Interpretation: No need for supplemental oxygenation at this time ECG Attestation: I personally reviewed and interpreted this ECG as follows: ECG completion date: 02/07/25 ECG completion time: 22:34 Prior ECG tracings: available for review Interpretation: Sinus rhythm first-degree AV block rate of 79 SD interval 223 QRS duration 39 right bundle branch block QTC 457 QRS axis 59 no STEMI, first-degree AV block is new finding Imaging Chest x-ray: Radiologist's impression: EXAMINATION: XR chest 1V portable DATE: 02/07/2025 20:04 INDICATION: Chest pain TECHNIQUE: frontal view of the chest was obtained. COMPARISON: Chest radiograph dated 12/09/2024 FINDINGS: Calcified nodules in the right upper lung zone consistent with old granulomatous disease. Skinfolds project over the lateral aspect of both lungs. No pulmonary edema, pleural effusion or pneumothorax. Thin curvilinear opacities at the left costophrenic angle corresponding to the margins of a region of focal emphysema dated 11/22/24. Heart size is normal. Tortuous thoracic aorta. IMPRESSION: 1. Emphysema. No acute cardiopulmonary disease. Reviewed, dictated and finalized at location A. Assessment and Plan Assessment and plan (1) Ventricular tachycardia: Code(s): I47.20 - Ventricular tachycardia, unspecified Status: Acute Assessment and Plan: -EMS captured several runs of V-Tach while patient was having chest pressure and not feeling well -No further episodes since arrival to ER -Potassium 3.9, Magnesium 1.7--oral KCL ordered and IV magnesium replacement 2 grams ordered -Pacer/Defib pads in AP placement in the ER and admit to IMU pending Cardiology evaluation -Continue sotalol/Eliquis at previously prescribed dosing per Cardiology by phone with ER provider (2) Elevated troponin: Code(s): R79.89 - Other specified abnormal findings of blood chemistry Status: Acute Assessment and Plan: -Initial troponin normal -Rise in 3 hour, 6 hour and 9 hour measurements -Patient described chest pressure with dysrrhythmia, no pain or pressure during exam -Already received Eliquis dose before elevated troponin called -Heparin ordered for 0900 start with no bolus unless Cardiology cancels this (3) CAD (coronary artery disease): Code(s): I25.10 - Atherosclerotic heart disease of [place] coronary artery without angina pectoris Status: Chronic Assessment and Plan: -Chronic history noted with acute chest pressure, dysrhythmia and elevated troponin tonight (4) Obstructive sleep apnea on CPAP: Code(s): G47.33 - Obstructive sleep apnea (adult) (pediatric); Z99.89 - Dependence on other enabling machines and devices Status: Chronic Assessment and Plan: -Noted history (5) Crohn's disease involving terminal ileum: Code(s): K50.00 - Crohn's disease of small intestine without complications Status: Chronic Assessment and Plan: -Noted history, no current GI symptoms (6) Benign essential HTN: Code(s): I10 - Essential (primary) hypertension Status: Chronic Assessment and Plan: -Noted history, continue home medications Quality VTE Prophylaxis VTE prophylaxis: pharmacologic ordered (Eliquis-Change to Heparin drip) Due to a high probability of clinically significant, life threatening deterioration, the patient required my highest level of preparedness to intervene emergently and I personally spent this critical care time directly and personally managing the patient. This critical care time included obtaining a history; examining the patient; pulse oximetry; ordering and review of studies; arranging urgent treatment with development of a management plan; evaluation of patient's response to treatment; frequent reassessment; and discussions with other providers. It was exclusive of separately billable procedures and treating other patients and teaching time. Please see Assessment and Plan section and the rest of the note for further information on patient assessment and treatment. Critical Care time: 45 minutes Hospitalist MIPS Advance Care Plan I have confirmed that the patient's Advanced Care Plan is present, code status is documented, or surrogate decision maker is listed in patient medical record.: Yes Medication Reconciliation I have utilized all available resources to obtain, update and review the patients current medications (includes all prescriptions, OTC, herbals, cannabis, and nutritional supplements).: Yes
[2025-02-08] VITALS (13 sets, daily range): BP systolic 113–141; BP diastolic 63–76; PULSE 63–80; RESP 16–20; TEMP 36.4–36.6; O2SAT 96–98
--- NOTE | 2025-02-08 | ECHO_ITS ---
Patient Info Name: Randy Gee Age: 89 years : 1935 Gender: Male Ht: 68 in Wt: 137 lbs BSA: 1.72 m2 HR: 64 bpm BP: 117 / 63 mmHg Technical Quality: Good Exam Date: 02/08/2025 10:07 AM Patient Status: I Admit Date: 02/07/2025 Exam Type: CA echo doppler color flow Complete two-dimensional, color flow and Doppler transthoracic echocardiogram is performed. Staff Referring Physician: Bacilio Holt Jewel Setter: Daria Rendon Attending Provider: Brendan Evans Summary 1. Complete two-dimensional, color flow and Doppler transthoracic echocardiogram is performed. 2. This was a technically difficult study with poorly visualized windows. 3. There appears to be normal biventricular size and systolic function. 4. There is mild biatrial enlargement. 5. The mitral valve leaflets are not well visualized however there is significant annular calcification. There is no significant mitral stenosis by echo gradients. There is trace mitral regurgitation. 6. The aortic valve is not well visualized however there appears to be mild aortic stenosis by echo Doppler gradients. Left Ventricle The left ventricle is normal in size and systolic function. The left ventricular ejection fraction is visually estimated to be 60-65%. Right Ventricle The right ventricle is normal in size and systolic function. Left Atria The left atrium is mildly dilated. Right Atria The right atrium is mildly dilated. Atrial Septum The atrial septum is not well visualized. Aortic Valve The aortic valve is not well visualized however there appears to be mild aortic stenosis by echo Doppler gradients. Pulmonic Valve The pulmonic valve is not well visualized. Mitral Valve The mitral valve leaflets are not well visualized however there is significant annular calcification. There is no significant mitral stenosis by echo gradients. There is trace mitral regurgitation. Tricuspid Valve The tricuspid valve is normal. There is trace tricuspid regurgitation. Pericardium/Pleural Pericardium is normal in appearance with no evidence for significant pericardial effusion. Inferior Vena Cava Inferior vena cava is not well visualized. Aorta The aortic root is not well visualized. Left Ventricular Outflow Tract Name Value Normal LVOT 2D LVOT Diameter 2.0 cm LVOT Doppler LVOT Peak Velocity 102 cm/s LVOT Peak Gradient 4 mmHg LVOT Mean Gradient 2 mmHg LVOT VTI 24 cm LVOT VTI/AV VTI Ratio 0.5 LVOT Stroke Volume 74 ml LVOT CO 4.6 l/min LVOT CI 2.6 l/min/m2 Pulmonic Valve Name Value Normal RVOT Doppler RVOT Peak Velocity 27 cm/s RVOT Peak Gradient 0 mmHg PV Doppler PV Peak Velocity 161 cm/s PV Peak Gradient 10 mmHg Mitral Valve Name Value Normal MV Diastolic Function MV E Peak Velocity 70 cm/s MV A Peak Velocity 135 cm/s MV E/A 0.5 MV Decel Time (PW) 775 ms MV Annular TDI MV E/e' (Septal) 15.0 MV E/e' (Lateral) 8.8 MV E/e' (Average) 11.9 Aortic Valve Name Value Normal AV Doppler AV Peak Velocity 233 cm/s AV Peak Gradient 21 mmHg AV Mean Gradient 12 mmHg AV VTI 50 cm AV Area (Cont Eq VTI) 1.5 cm2 >=3.0 AV Area (Cont Eq Tor) 1.4 cm2 AV DI (Tor) 0.44 AV Regurgitation 2D LVOT Area 3.1 cm2 Ventricles Name Value Normal LV Dimensions 2D/MM IVS Diastolic Thickness (2D) 1.0 cm 0.6-1.0 LVID Diastole (2D) 3.8 cm 4.2-5.8 LVIW Diastolic Thickness (2D) 0.9 cm 0.6-1.0 LVID Systole (2D) 2.4 cm 2.5-4.0 LVOT Diameter 2.0 cm LV Mass (2D Cubed) 106.67 g 88.00-224.00 LV Mass Index (2D Cubed) 62 g/m2 49-115 Relative Wall Thickness (2D) 0.48 <=0.42 LV Fractional Shortening/Ejection Fraction 2D/MM LV Fractional Shortening (2D) 36 % 25-43 LV EF (2D Teichholz) 66 % LV Diastolic Volume (4C MOD) 95 ml LV EF (4C MOD) 59 % LV Diastolic Volume (2C MOD) 94 ml LV EF (2C MOD) 52 % LV Diastolic Volume (BP MOD) 96 ml 62-150 LV Diastolic Volume Index (BP MOD) 56 ml/m2 34-74 LV Systolic Volume (BP MOD) 42 ml 21-61 LV Systolic Volume Index (BP MOD) 24 ml/m2 11-31 LV EF (BP MOD) 56 % 52-72 LV Diastolic Length (4C) 8.4 cm LV Systolic Length (4C) 7.9 cm LV Stroke Volume (4C MOD) 56 ml RV Dimensions 2D/MM TAPSE 1.7 cm >=1.7 Atria Name Value Normal LA Dimensions LA Volume (4C A-L) 68 ml LA Volume (BP A-L) 67 ml RA Dimensions RA Systolic Major [place] Length (4C) 5.7 cm 2.1-2.7 RA Area (4C) 13.8 cm2 <=18.0 Report Signatures
[2025-02-08] MEDS: MELATONIN 5 MG TABLET PO (01:46)
[2025-02-08 02:07] LABS: Troponin I 0.333 ng/mL (0.000-0.034)
[2025-02-08] MEDS: POTASSIUM CHLORIDE 20 MEQ ER TABLET PO (02:08)
[2025-02-08] MEDS: MAGNESIUM SULF 2 GM/WATER 50ML 2 GM/50 ML BAG IVPB (02:08)
[2025-02-08 04:16] LABS: Hematocrit 38.5 % (42.0-52.0); Hemoglobin 12.3 g/dL (14.0-18.0); Immature Granulocyte Percent A 0.3 % (0-0.5); Lymphocytes Absolute Auto 2.57 K/mm3 (0.9-3.2); Mean Corpuscular HGB Conc 31.9 g/dl (32-36); Mean Corpuscular Hemoglobin 28.6 pg (26-34); Mean Corpuscular Volume 89.5 fl (80-100); Nucleated Red Blood Cells Absolute Auto 0.000 K/mm3 (0.0-0.012); Nucleated Red Blood Cells Perc 0.0 % (0.0-0.2); Platelet Count Result 271 k/mm3 (150-375); Red Blood Count 4.30 M/mm3 (4.6-6.20); White Blood Count 10.3 K/mm3 (4.5-10.0)
[2025-02-08 04:24] LABS: Hemoglobin A1C 6.1 % (<5.7)
[2025-02-08 04:29] LABS: INR 1.3; Prothrombin Time 15.6 Seconds (11.1-14.7)
[2025-02-08 04:30] LABS: Partial Thromboplastin Time 34.2 Seconds (22.3-36.8)
[2025-02-08 04:34] LABS: Alanine Aminotransferase 10 U/L (6-50); Albumin Level 3.3 g/dL (3.5-5.1); Alkaline Phosphatase 91 U/L (38-126); Anion Gap 5 mmol/L (4-12); Aspartate Amino Transferase 27 U/L (17-59); Bilirubin,Total 0.8 mg/dL (0.2-1.3); Blood Urea Nitrogen 18 mg/dL (9-20); Calcium 8.5 mg/dL (8.4-10.2); Carbon Dioxide 28 mmol/L (22-30); Chloride 104 mmol/L (98-107); Estimated CRCL calculation 51 ml/min; Estimated Glomerular Filt Rate > 60; Glucose 97 mg/dL (65-110); Magnesium 2.4 mg/dL (1.6-2.3); Potassium 3.9 mmol/L (3.4-5.0); Sodium 137 mmol/L (137-145); Total Protein 6.4 g/dL (6.3-8.2)
[2025-02-08 04:42] LABS: NT Pro B Type Natriuretic Pept 1330 pg/mL (19.9-100); Troponin I 0.399 ng/mL (0.000-0.034)
[2025-02-08 08:17] LABS: Troponin I 0.371 ng/mL (0.000-0.034)
[2025-02-08] MEDS: HEPARIN SOD/D5W 100 UNITS/ML 25,000 UNITS/250 ML BAG 8 UNITS IV CONT (09:19)
--- NOTE | 2025-02-08 14:53 | PM.CNCAR ---
Assessment and Plan Assessment and plan (1) Wide-complex tachycardia: Code(s): R00.0 - Tachycardia, unspecified Status: Acute Plan 89-year-old man with paroxysmal atrial fibrillation on sotalol and Eliquis and hypertension presented with chest pain wide complex tachycardia -limited rhythm strips however does appear that could be either pause dependent VT versus atrial fibrillation with aberrancy -his baseline EKG did not review any significantly prolonged QTC -echocardiogram did not review any systolic cardiomyopathy -outpatient follow-up and would benefit from a seven-day event monitor Paroxysmal atrial fibrillation -continue Eliquis 5 mg p.o. b.i.d. -continue sotalol Hypertension -nifedipine 30 mg p.o. daily Can be discharged to follow up with Dr. Mota History of Present Illness History of Present Illness Consult date/time: 02/08/25 14:53 Requesting physician: Arnulfo Corey APRN Reason For Visit: Syncope V-tach Narrative: 89-year-old man with paroxysmal atrial fibrillation on sotalol and Eliquis and hypertension presented with chest pain. He completed his dinner and was washing his dishes when he needed to utilize the bathroom for bowel movement when he suddenly became diaphoretic with severe chest discomfort as if someone was sitting on him. He did not lose consciousness and EMS was called. After evaluation it did appear that he was not wide complex tachycardia and aspirin and nitroglycerin was given. By the time the medications were being given, the patient had resolution of his symptoms was brought to the emergency room for further evaluation. He has not had any recurrence of these signs and symptoms. Normally he is able to carry out yd work including using electric push lawnmower and completing his grocery shopping is without any cardiopulmonary limitations. Review of Systems Cardiovascular: Cardiovascular: Reports as per HPI Respiratory: Respiratory: Reports as per HPI [facility] Past Medical History Medical History Murmur, cardiac Chest tightness Chest pain of uncertain etiology Glucose intolerance Weight loss Vitamin B 12 deficiency Chronic rhinosinusitis Constipation, chronic Diarrhea Frequent urination at night Prostate cancer genetic susceptibility Dr Tarango on shots over 10 years Squamous cell carcinoma skin of arm Skin neoplasm Adenocarcinoma of prostate COVID-19 Shingles Osteoarthritis of right thumb Right shoulder pain Fall Skin cancer screening Benign mole Fatigue Bilateral lower extremity edema Night sweats from tylenol Chronic inflammatory demyelinating polyneuropathy Headache HEAD OF IT demyelination 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 Peripheral neuropathy Crohn's disease involving terminal ileum Chronic diarrhea Ileitis Obstructive sleep apnea on CPAP AAA (abdominal aortic aneurysm) without rupture Followed Dr Stephens Vascular surgeon 12-02 aorta 4.3 cm repeat next year Benign essential HTN CAD (coronary artery disease) Actinic keratosis History of SCC (squamous cell carcinoma) of skin History of basal cell carcinoma (BCC) Family History Family History Father Diabetes mellitus Social History Social History Smoking packs per day: 3 Smoking cigarettes per day: 60.0 Years smoked: 25 Smoking pack-years: 75.00 Smoking status: Former smoker Tobacco type: cigarettes Second hand tobacco smoke exposure: Yes Smoking end date: 06/14/83 Alcohol intake: current Drinks per week: 5 Alcohol use details: Beer Substance use: never Substance use type: does not use Lack of Transportation: No Lack of Food: Never True Current Housing: I Have Housing Concerned About Future Housing: No Difficulty Paying Gas/Electric Bills: No Difficulty Paying for Meds: No Currently Unemployed: No Education: Associate Degree Difficulty w/ Childcare or Family Care: No Living arrangements: with family Occupation/Education: retired Gender identity (if verbalized by the patient): Male Spiritual care concerns: No Agree to blood products: Yes Meds Home Medications and Allergies Home Medications ?Medication ?Instructions ?Recorded ?Confirmed ?Type fluorouracil 5 % topical cream See Rx Instructions .Route 10/01/21 02/07/25 History .COMPLEX PRN lesions apixaban 5 mg tablet (Eliquis) 5 mg PO Q12H 02/07/25 02/07/25 History nifedipine 30 mg tablet,extended 30 mg PO DAILY 02/07/25 02/07/25 History release 24 hr sotalol 80 mg tablet 40 mg PO Q12H 02/07/25 02/07/25 History Allergies Allergy/AdvReac Type Severity Reaction Status Date / Time gabapentin Allergy Severe Anaphylaxis Verified 01/05/25 11:22 Vital Signs Vital Signs - 24 hr 02/07/25 19:17 02/07/25 22:18 02/07/25 22:24 Temperature 36.7 C Pulse Rate 88 81 84 Respiratory Rate 22 H 18 Blood Pressure 139/88 147/84 H Pulse Oximetry 96 96 Oxygen Delivery Room Air 02/07/25 23:05 02/08/25 00:00 02/08/25 02:00 Temperature 36.5 C Pulse Rate 86 77 69 Respiratory Rate 16 Blood Pressure 144/75 H Pulse Oximetry 96 Oxygen Delivery 02/08/25 04:00 02/08/25 04:00 02/08/25 06:00 Temperature 36.5 C Pulse Rate 65 66 72 Respiratory Rate 16 Blood Pressure 117/63 Pulse Oximetry 96 Oxygen Delivery 02/08/25 07:52 02/08/25 08:00 02/08/25 09:19 Temperature 36.6 C Pulse Rate 65 72 69 Respiratory Rate 18 Blood Pressure 141/68 H Pulse Oximetry 97 Oxygen Delivery 02/08/25 10:00 02/08/25 11:49 02/08/25 12:00 Temperature 36.4 C Pulse Rate 63 78 79 Respiratory Rate 20 Blood Pressure 137/76 Pulse Oximetry 96 Oxygen Delivery 02/08/25 14:00 Temperature Pulse Rate 69 Respiratory Rate Blood Pressure Pulse Oximetry Oxygen Delivery Exam Const: General: comfortable HENMT: Mouth: Yes moist mucous membranes Eyes: EOM: EOMs intact bilaterally Neck: Neck: no JVD Resp: Effort & Inspection: normal respiratory effort Auscultation: clear to auscultation bilaterally Cardio: Rate: regular rate Rhythm: regular rhythm Neuro: Speech: normal speech Extrem: General: pedal edema Results Labs and Meds 02/08/25 03:26 02/08/25 03:26 Lab results: Cardiac Enzymes 02/07/25 02/07/25 02/08/25 Range/Units 19:32 22:20 01:31 AST 24 (17-59) U/L Troponin I < 0.012 0.129 H* D 0.333 H* D (0.000-0.034) ng/mL 02/08/25 02/08/25 Range/Units 03:26 07:45 AST 27 (17-59) U/L Troponin I 0.399 H* 0.371 H* (0.000-0.034) ng/mL Coagulation 02/07/25 02/08/25 Range/Units 19:32 03:26 PT 14.6 15.6 H (11.1-14.7) Seconds APTT 31.8 34.2 (22.3-36.8) Seconds CBC 02/07/25 02/08/25 Range/Units 19:32 03:26 WBC 9.7 10.3 H (4.5-10.0) K/mm3 RBC 4.63 4.30 L (4.6-6.20) M/mm3 Hgb 13.1 L 12.3 L (14.0-18.0) g/dL Hct 41.2 L 38.5 L (42.0-52.0) % Plt Count 305 271 (150-375) k/mm3 Lymph # (Auto) 2.72 2.57 (0.9-3.2) K/mm3 [place] # (Auto) 0.8 H 1.1 H (0.1-0.6) K/mm3 Eos # (Auto) 0.2 0.1 (0-0.3) K/mm3 Baso # (Auto) 0.1 0.1 (0.0-0.1) K/mm3 Comprehensive Metabolic Panel 02/07/25 02/08/25 Range/Units 19:32 03:26 Sodium 137 137 (137-145) mmol/L Potassium 3.9 3.9 (3.4-5.0) mmol/L Chloride 101 104 (98-107) mmol/L Carbon Dioxide 29 28 (22-30) mmol/L BUN 20 18 (9-20) mg/dL Creatinine 1.11 0.79 (0.7-1.3) mg/dL Glucose 193 H 97 (65-110) mg/dL Calcium 8.7 8.5 (8.4-10.2) mg/dL AST 24 27 (17-59) U/L ALT 11 10 (6-50) U/L Alkaline Phosphatase 89 91 (38-126) U/L Total Protein 7.0 6.4 (6.3-8.2) g/dL Albumin 3.8 3.3 L (3.5-5.1) g/dL Intake and Output 02/07/25 02/08/25 02/08/25 23:59 07:59 15:59 Intake Total 150 720 Output Total 1200 Balance -1050 720 Intake: Oral 150 720 Output: Urine 1200 Patient Weight 02/08/25 23:59 Weight 62.5 kg
--- NOTE | 2025-02-08 16:08 | P.DS_ITS ---
DS: Admitting Diagnosis Discharge Date 02/08/2025 Admitting Diagnosis Arrhythmia DS: Discharge Diagnosis Discharge Diagnosis (1) Wide-complex tachycardia: Code(s): R00.0 - Tachycardia, unspecified Status: Acute (2) Elevated troponin: Code(s): R79.89 - Other specified abnormal findings of blood chemistry Status: Acute (3) Ventricular tachycardia: Code(s): I47.20 - Ventricular tachycardia, unspecified Status: Acute (4) Peripheral neuropathy: Code(s): G62.9 - Polyneuropathy, unspecified Status: Acute Assessment and Plan: wide complex tachycardia-this could be atrial fibrillation with aberrancy Patient had elevated troponin which could be of demand ischemia from the arrhythmia Continue sotalol and Eliquis DS: Summary Hospital Course Hospital Course: Randy Gee is an 89 year old female with pmhs of hypertension, dyslipidemia, atrial fibrillation on Eliquis at home who presents with chest tightness/diaphoresis/nausea and vomiting. En route EMS found out he has arrhythmia-he was given aspirin 81 mg x 4, nitroglycerin for pain. In the ED, he was found to have elevated troponin. He was placed on IV heparin and Cardiology was consulted. EKG reveals sinus rhythm right bundle-branch block. Patient was chest pain-free. 2D echo this morning shows normal left ventricle ejection fraction with 60-65% without wall motion abnormality. Cardiology recommended continuing sotalol which is home dose and Eliquis and discharged home with cardiology follow-up as outpatient. Instruction given to the patient to call Cardiology to make an appointment and received event monitor order. Patient was discharged home in stable condition. Time Spent with Patient Time attestation: 30 minute Total time spent providing and/or coordinating discharge services: Exam Narrative: APPEARANCE: No acute distress, stated age EYES: EOMI HEENT: Normocephalic, atraumatic, OMM RESPIRATORY: No respiratory distress Clear to auscultation bilaterally with no rhonchi wheezing or rales. CARDIOVASCULAR: RRR, S1 and S2 without murmurs rubs or gallops. ABDOMINAL: Soft, nontender, nondistended, no rebound or guarding MSK: Moves his extremities spontaneously NEURO: Awake and alert. Following commands, speech normal, no focal deficits SKIN:: Warm, dry. No rashes lesions or abrasions PSYCHIATRIC: Normal affect/mood, DS: Data Data Completed and Pending Labs on day of discharge: Labs from last 24 hours 02/08/25 02/08/25 02/08/25 07:45 03:26 01:31 WBC 10.3 H RBC 4.30 L Hgb 12.3 L Hct 38.5 L MCV 89.5 MCH 28.6 MCHC 31.9 L RDW 14.2 Plt Count 271 MPV 9.0 Immature Gran % (Auto) 0.3 Neut % (Auto) 62.1 Lymph % (Auto) 24.9 [place] % (Auto) 10.8 H Eos % (Auto) 1.1 Baso % (Auto) 0.8 Lymph # (Auto) 2.57 [place] # (Auto) 1.1 H Eos # (Auto) 0.1 Baso # (Auto) 0.1 Abs Immat Gran (auto) 0.03 Absolute Neuts (auto) 6.4 Absolute Nucleated RBC 0.000 Nucleated RBC % 0.0 PT 15.6 H INR 1.3 APTT 34.2 Sodium 137 Potassium 3.9 Chloride 104 Carbon Dioxide 28 Anion Gap 5 BUN 18 Creatinine 0.79 Estim Creat Clear Calc 51 Estimated GFR > 60 Glucose 97 Hemoglobin A1c 6.1 H Calcium 8.5 Phosphorus Magnesium 2.4 H Total Bilirubin 0.8 AST 27 ALT 10 Alkaline Phosphatase 91 Troponin I 0.371 H* 0.399 H* 0.333 H* D NT-Pro-B Natriuret Pep 1330 H Total Protein 6.4 Albumin 3.3 L Lipase 02/07/25 02/07/25 02/07/25 22:20 20:25 19:32 WBC 9.7 RBC 4.63 Hgb 13.1 L Hct 41.2 L MCV 89.0 MCH 28.3 MCHC 31.8 L RDW 14.3 Plt Count 305 MPV 8.9 Immature Gran % (Auto) 0.2 Neut % (Auto) 61.4 Lymph % (Auto) 28.1 [place] % (Auto) 7.7 Eos % (Auto) 1.9 Baso % (Auto) 0.7 Lymph # (Auto) 2.72 [place] # (Auto) 0.8 H Eos # (Auto) 0.2 Baso # (Auto) 0.1 Abs Immat Gran (auto) 0.02 Absolute Neuts (auto) 6.0 Absolute Nucleated RBC 0.000 Nucleated RBC % 0.0 PT 14.6 INR 1.1 APTT 31.8 Sodium 137 Potassium 3.9 Chloride 101 Carbon Dioxide 29 Anion Gap 7 BUN 20 Creatinine 1.11 Estim Creat Clear Calc Not Reportable Estimated GFR > 60 Glucose 193 H Hemoglobin A1c Calcium 8.7 Phosphorus 3.6 Magnesium 1.7 Total Bilirubin 0.8 AST 24 ALT 11 Alkaline Phosphatase 89 Troponin I 0.129 H* D < 0.012 NT-Pro-B Natriuret Pep Total Protein 7.0 Albumin 3.8 Lipase 38 Discharge Plan Discharge Attending physician on discharge: Brendan Evans Consulting providers: Cosme Mccray Discharging Clinician: Fior Kaur Anticipated Discharge Date/Time: 02/08/25 16:04 Patient Disposition: Home Activity: unlimited Diet: as tolerated Discharge Instructions: You will need event monitor for 7 days please call your geology scientist to get those orders Follow-up with your geology scientist in 1 week Patient Instructions: Antibiotic Form, Apixaban (By mouth) Patient Language: Maori Stand Alone Forms: General Discharge Information Follow-up/Referrals: Cosme Mccray MD [Physician, Cardiology] - 1 Week Referral Note: he needs event monitor for 1 week Discharge Medications: Continued fluorouracil 5 % cream See Rx Instructions .ROUTE .COMPLEX PRN (Reason: lesions) Rx Instructions: APPLY SUFFICIENT AMOUNT TOPICALLY TO COVER ALL LESIONS TWICE DAILY FOR 4 WEEKS nifedipine 30 mg tablet extended release 24hr 30 mg PO DAILY sotalol 80 mg tablet 40 mg PO Q12H Eliquis 5 mg tablet 5 mg PO Q12H Date of admission: 02/07/25 21:00 Primary Care Provider: Vero Prado Admitting Provider: Brendan Evans Attending physician on admission: Brendan Evans Condition: Guarded Prognosis
== END 2025-02-08 16:52 | disposition home or self-care (01) | DRG 309 ==
LOC: ANHED 20:37 → ANHIMU 22:12
PROVIDERS: Nurse Practitioner; Admitting Provider General Practice; Emergency Provider Emergency Medicine; PCP Nurse Practitioner Family; Visit Provider Student in an Organized Health Care Education/Training Program
DX: I47.20 Ventricular tachycardia, unspecified (principal); I24.89 Other forms of acute ischemic heart disease; K50.90 Crohn's disease, unspecified, without complications; I48.0 Paroxysmal atrial fibrillation; G62.9 Polyneuropathy, unspecified; E78.5 Hyperlipidemia, unspecified; G47.33 Obstructive sleep apnea (adult) (pediatric); I25.10 Atherosclerotic heart disease of native coronary artery without angina pectoris; I10 Essential (primary) hypertension; I71.40 Abdominal aortic aneurysm, without rupture, unspecified; Z79.01 Long term (current) use of anticoagulants; Z85.828 Personal history of other malignant neoplasm of skin; Z87.891 Personal history of nicotine dependence; Z86.16 Personal history of COVID-19
CPT/HCPCS: 36415; 71045; 80053; 83036; 83690; 83735; 83880; 84100; 84484; 85025; 85610; 85730; 93005; 93306; 99285; A9270; J1644; J3475